=== PATIENT | male | born 1955 | race Caucasian/White ===

== ENCOUNTER 2016-02-17 08:43 | Day surgery (SDC) | payer OTHER ==
[2016-02-12 15:03] VITALS: BMI 29.4
[~2016-02-17 08:43] MED LIST: LIDOCAINE 1% 20 ML VIAL (10MG/ML) FOR IV START INTRADERMA PRN
[2016-02-17 09:08] VITALS: TEMP 97.2
[2016-02-17] MEDS: LACTATED RINGERS 1,000 ML IV SCH ×2 (09:14→09:17)
[2016-02-17] MEDS ORDERED: PROPOFOL 10 MG/ML 20 ML VIAL IV ONE (09:19)
[2016-02-17] MEDS ORDERED: LIDOCAINE 1% INJ 10MG/ML (20 ML MDV) ONE (09:19)
--- NOTE | 2016-02-17 09:36 | P.GSHP ---
History of Present Illness H&P Date: 02/17/16 Chief Complaint: History of colonic polyps This is a 60-year-old male from Dr. Sujatha gonzalez. Patient presents today for colonoscopy. He has a history of colonic polyps. His last colonoscopy was 5 years ago. - Constitutional Constitutional: Reports as per HPI Past Medical History Past Medical History: Prostate Disorder Additional Past Medical History / Comment(s): enlarged prostate History of Any Multi-Drug Resistant Organisms: None Reported Additional Past Surgical History / Comment(s): colonoscopy Past Anesthesia/Blood Transfusion Reactions: No Reported Reaction Additional Past Anesthesia/Blood Transfusion Reaction / Comment(s): never has had general anesthesia or blood transfusion Smoking Status: Never smoker Past Alcohol Use History: None Reported Additional Past Alcohol Use History / Comment(s): chews tobacco-1 can every other day, 45 yrs approx Past Drug Use History: None Reported - Past Family History Mother Family Medical History: Cancer Father Family Medical History: Deep Vein Thrombosis (DVT) Additional Family Medical History / Comment(s): green field filter Medications and Allergies Home Medications Medication Instructions Recorded Confirmed Type Cholecalciferol [Vitamin D3] 2,000 unit PO DAILY 02/12/16 02/17/16 History Cyanocobalamin [Vitamin B-12] 500 mcg PO DAILY 02/12/16 02/17/16 History Finasteride [Proscar] 5 mg PO DAILY 02/12/16 02/17/16 History Terazosin HCl [Hytrin] 10 mg PO HS 02/12/16 02/17/16 History Allergies Allergy/AdvReac Type Severity Reaction Status Date / Time No Known Allergies Allergy Verified 02/17/16 08:54 Surgical - Exam Vital Signs Temp Pulse Resp BP Pulse Ox 97.2 F L 76 18 149/72 97 02/17/16 09:07 02/17/16 09:07 02/17/16 09:07 02/17/16 09:07 02/17/16 09:07 - General well developed, no distress - Eyes PERRL - ENT normal pinna - Neck no masses - Respiratory normal expansion - Cardiovascular Rhythm: regular - Abdomen Abdomen: soft, non tender Assessment and Plan Plan: History of colon polyps. We'll perform colonoscopy.
--- NOTE | 2016-02-17 09:54 | P.OP ---
Date of Procedure: 02/17/16 Preoperative Diagnosis: Colonic polyps Postoperative Diagnosis: Colonic polyp at 40 cm Procedure(s) Performed: Colonoscopy Anesthesia: MAC Surgeon: Romeo Melgar Pathology: other (Colon polyp) Condition: stable Disposition: PACU Description of Procedure: The patient's placed on the endoscopy table in the lateral position. He received IV sedation. Digital rectal exam was performed which revealed no abnormalities. The prostate was symmetric without nodules. The flexible colonoscope was then placed patient anus passed throughout the entire colon. The ileocecal valve was visualized. The cecum Appeared normal. In the ascending colon there was diverticular changes seen. In the transverse and descending colon there were diverticular changes seen. The scope was then brought back into the sigmoid colon and more diverticula are seen. There is also a peduncular polyp. This removed the snare. The scope was then brought back the rectum this appeared normal. Scope was withdrawn for patient.
[2016-02-17 09:58] VITALS: RESP 16
[2016-02-17 10:24] VITALS: BP 136/73; PULSE 50
== END 2016-02-17 10:41 | disposition home or self-care (01) ==
LOC: ORWHC2ENDO 08:43
PROVIDERS: ATTEND Surgery
DX: Z12.11 Encounter for screening for malignant neoplasm of colon (principal); Z86.010 Personal history of colon polyps; D12.5 Benign neoplasm of sigmoid colon; K57.30 Diverticulosis of large intestine without perforation or abscess without bleeding; N40.0 Benign prostatic hyperplasia without lower urinary tract symptoms; I10 Essential (primary) hypertension; Z79.899 Other long term (current) drug therapy; F17.220 Nicotine dependence, chewing tobacco, uncomplicated
CPT/HCPCS: 88305; 45385; J2001; J2704; 99153

== ENCOUNTER 2018-05-26 06:54 | Day surgery (SDC) | payer BC, OTHER ==
[2018-05-25 08:42] VITALS: BMI 27.7
[~2018-05-26 06:54] MED LIST changes: +LACTATED RINGERS 1,000 ML IV SCH; -LIDOCAINE 1% 20 ML VIAL (10MG/ML) FOR IV START INTRADERMA PRN
[2018-05-26] MEDS ORDERED: LACTATED RINGERS 1,000 ML IV ONE (07:03)
[2018-05-26 07:12] VITALS: RESP 16
[2018-05-26] MEDS ORDERED: GLYCOPYRROLATE 0.2 MG/ML 2 ML VIAL ONE (07:50)
[2018-05-26] MEDS ORDERED: PROPOFOL 10 MG/ML 20 ML VIAL IV ONE (07:50)
[2018-05-26] MEDS ORDERED: LIDOCAINE 1% INJ 10MG/ML (20 ML MDV) ONE (07:50)
--- NOTE | 2018-05-26 08:08 | P.GSHP ---
History of Present Illness H&P Date: 05/26/18 Chief Complaint: History of colon polyps This is a 62-year-old male who presents today for colonoscopy. Patient had previous colonoscopy and was found to have colonic polyps. Past Medical History Past Medical History: Prostate Disorder Additional Past Medical History / Comment(s): enlarged prostate History of Any Multi-Drug Resistant Organisms: None Reported Past Surgical History: Hernia Repair Additional Past Surgical History / Comment(s): colonoscopy Past Anesthesia/Blood Transfusion Reactions: No Reported Reaction Additional Past Anesthesia/Blood Transfusion Reaction / Comment(s): never has had blood transfusion Smoking Status: Never smoker - Past Family History Mother Family Medical History: Cancer Father Family Medical History: Deep Vein Thrombosis (DVT) Additional Family Medical History / Comment(s): green field filter Medications and Allergies Home Medications Medication Instructions Recorded Confirmed Type Cholecalciferol [Vitamin D3] 2,000 unit PO DAILY 02/12/16 05/26/18 History Cyanocobalamin [Vitamin B-12] 500 mcg PO DAILY 02/12/16 05/26/18 History Finasteride [Proscar] 5 mg PO DAILY 02/12/16 05/26/18 History Terazosin HCl [Hytrin] 15 mg PO HS 02/12/16 05/26/18 History Allergies Allergy/AdvReac Type Severity Reaction Status Date / Time No Known Allergies Allergy Verified 05/26/18 07:14 Surgical - Exam Vital Signs Pulse Resp BP Pulse Ox 66 16 138/74 94 L 05/26/18 07:12 05/26/18 07:12 05/26/18 07:12 05/26/18 07:12 - General well developed, well nourished, no distress - Eyes PERRL - ENT normal pinna - Neck no masses - Respiratory normal expansion - Cardiovascular Rhythm: regular - Abdomen Abdomen: soft, non tender Assessment and Plan Assessment: History: Polyps. We'll perform colonoscopy.
--- NOTE | 2018-05-26 08:20 | P.OP ---
Date of Procedure: 05/26/18 Preoperative Diagnosis: History of colon polyps Postoperative Diagnosis: Diverticulosis Procedure(s) Performed: Colonoscopy Anesthesia: MAC Surgeon: Romeo Melgar Pathology: none sent Condition: stable Disposition: PACU Description of Procedure: The patient's placed on the endoscopy table lateral position. He received IV sedation. Digital rectal exam was performed which revealed no abnormalities. The prostate was symmetric without nodules. Flexible colonoscope was then placed patient anus and passed throughout the entire colon. The ileocecal valve was visualized. The cecum, ascending and transverse colon appeared normal. In the descending and sigmoid colon there is mild diverticular changes. Scope was then brought back the rectum and appeared normal. Scope was then brought back through the anus and withdrawn from patient. There were no colonic polyps seen.
[2018-05-26 08:36] VITALS: BP 147/72; PULSE 51
== END 2018-05-26 09:06 | disposition home or self-care (01) ==
LOC: ORWHC2ENDO 06:54
PROVIDERS: ATTEND Surgery
DX: Z12.11 Encounter for screening for malignant neoplasm of colon (principal); K57.30 Diverticulosis of large intestine without perforation or abscess without bleeding; Z86.010 Personal history of colon polyps; N40.0 Benign prostatic hyperplasia without lower urinary tract symptoms; Z79.899 Other long term (current) drug therapy
CPT/HCPCS: J2001; J2704; G0105

== ENCOUNTER → 2020-06-27 | Outpatient (CLI) | payer BC ==
--- NOTE | 2020-06-27 14:46 | US ---
EXAMINATION TYPE: US kidneys/renal and bladder DATE OF EXAM: 06/27/2020 COMPARISON: US 11/16/11 CLINICAL HISTORY: R31.9 Hematuria, unspecified. EXAM MEASUREMENTS: Right Kidney: 11.5 x 5.6 x 4.4 cm Left Kidney: 12.4 x 5.5 x 5.2 cm Post Void Residual Volume: Not calculated. Bladder not distended. Prevoid volume = 32.9 ml Right Kidney: No hydronephrosis or renal calculi seen, 2 small cysts seen lower pole : 1) 1.7 x 1.5 x 1.3 cm 2) 1.1 x 0.9 x 0.7 cm Left Kidney: No hydronephrosis or renal calculi seen. 0.9 x 0.8 x 0.8 cm medial lower pole cyst Bladder: Non distended. Difficult to evaluate Bilateral Jets seen: No Normal Post Void Residual: Not calculated. There is no evidence for hydronephrosis at this point in time. No nephrolithiasis is seen. No willard s are identified. The urinary bladder is anechoic. Bilateral ureteral jets are seen. Incidental findings: Multiple hepatic cysts. Enlarged, heterogeneous prostate = 8.8 x 7.1 x 5.1 cm Upper limit size for bilateral common iliac arteries. No AAA seen. Rt = 1.6 x 1.5 cm Lt = 1.5 x 1.5 cm IMPRESSION: 1. No hydronephrosis or shadowing renal calculi. 2. Bilateral renal cysts. 3. Incidental note of multiple hepatic cysts. 4. Enlarged prostate gland measuring 8.8 cm. Urologic evaluation is recommended. 5. Ectasia of the proximal bilateral common iliac arteries.
== END | disposition home or self-care (01) ==
LOC: RADUSWWP 09:24
PROVIDERS: ATTEND Urology
DX: N28.1 Cyst of kidney, acquired (principal); K76.89 Other specified diseases of liver; N40.0 Benign prostatic hyperplasia without lower urinary tract symptoms
CPT/HCPCS: 76770

== ENCOUNTER 2020-11-15 17:52 | Inpatient (IN) | payer BC ==
[2020-11-15] MEDS ORDERED: IBUPROFEN 600 MG TAB PO STA (23:10)
[2020-11-15] MEDS ORDERED: ACETAMINOPHEN TAB 500 MG TAB PO STA (23:10)
[2020-11-16 00:02] LABS: Basophils % (A) 0 %; Eosinophils % (A) 0 %; HCT 37.7 % (39.0-53.0); Lymphocytes # (A) 0.2 k/uL (1.0-4.8); Lymphocytes % (A) 4 %; MCH 30.2 pg (25.0-35.0); MCHC 34.6 g/dL (31.0-37.0); MCV 87.4 fL (80.0-100.0); Mean Platelet Volume 7.3; Monocytes # (A) 0.1 k/uL (0-1.0); Monocytes % (A) 1 %; Neutrophils # (A) 4.5 k/uL (1.3-7.7); Neutrophils % (A) 94 %; Platelet Count 128 k/uL (150-450); RBC 4.31 m/uL (4.30-5.90); WBC 4.8 k/uL (3.8-10.6)
[2020-11-16] MEDS: SODIUM CHLORIDE 0.9% 500 ML 500 ML IV SCH ×3 (00:12→01:10)
[2020-11-16 00:14] LABS: Albumin 3.7 g/dL (3.5-5.0); Calcium 9.3 mg/dL (8.4-10.2); Potassium 3.5 mmol/L (3.5-5.1); Total Protein 6.3 g/dL (6.3-8.2)
[2020-11-16 00:18] LABS: Appearance,Urine Turbid (Clear); Bacteria,Urine Occasional /hpf; Bilirubin,Urine Negative (Negative); Blood,Urine Large (Negative); Color,Urine Dark Red; Glucose,Urine (UA) Negative (Negative); Ketones,Urine Negative (Negative); Leukocyte Esterase,Urine Large (Negative); Mucus,Urine Few /hpf; Nitrite,Urine Positive (Negative); Partial Thromboplastin Time 22.3 sec (22.0-30.0); Protein,Urine 2+ (Negative); Prothrombin Time 10.6 sec (9.0-12.0); RBC,Urine >182 /hpf (0-5); Urobilinogen,Urine <2.0 mg/dL (<2.0); WBC,Urine >182 /hpf (0-5)
[2020-11-16 00:19] LABS: Specific Gravity,Urine 1.015 (1.001-1.035)
[2020-11-16] MEDS ORDERED: LIDOCAINE URO-JET JELLY 2% 5 ML KIT URETHRAL ONE (01:06)
[2020-11-16] MEDS ORDERED: GENTAMICIN IVPB STA (02:39)
[2020-11-16] MEDS ORDERED: SODIUM CHLORIDE 0.9% IVPB STA (02:39)
[2020-11-16] MEDS ORDERED: cefTRIAXone IN SWFI 1,000 MG/10 ML SYRINGE IVP STA (02:39)
[2020-11-16] MEDS ORDERED: NALOXONE 0.4 MG/ML 1 ML VIAL IV PRN (02:40)
--- NOTE | 2020-11-16 02:42 | ED ---
General Adult HPI - General Chief complaint: Abdominal Pain Stated complaint: not able to urinate Time Seen by Provider: 11/15/20 22:54 Source: patient Mode of arrival: ambulatory Limitations: no limitations - History of Present Illness Initial comments: 65 year-old male patient presents to the emergency department for evaluation of urinary retention. Patient underwent cystoscopy on 11/13/20. States that afternoon he developed hematuria and urinary retention. Went back to the office had wong catheter placed. States they "put in in wrong" so he and his removed it later that night. He was doing okay then started to have blood in the urine again today. Then stopped urinating. He is reporting pain to the lower abdomen. Describes it as pressure. states that while sitting in the waiting room he started to become incoherent and woozy. Has not taken any pain medication today. Denies use of blood thinners. - Related Data Home Medications Medication Instructions Recorded Confirmed Cholecalciferol [Vitamin D3] 2,000 unit PO DAILY 02/12/16 05/26/18 Cyanocobalamin [Vitamin B-12] 500 mcg PO DAILY 02/12/16 05/26/18 Finasteride [Proscar] 5 mg PO DAILY 02/12/16 05/26/18 Terazosin HCl [Hytrin] 15 mg PO HS 02/12/16 05/26/18 Allergies Allergy/AdvReac Type Severity Reaction Status Date / Time No Known Allergies Allergy Verified 11/15/20 19:01 Review of Systems ROS Statement: Those systems with pertinent positive or pertinent negative responses have been documented in the HPI. ROS Other: All systems not noted in ROS Statement are negative. Past Medical History Past Medical History: Prostate Disorder Additional Past Medical History / Comment(s): enlarged prostate History of Any Multi-Drug Resistant Organisms: None Reported Past Surgical History: Hernia Repair Additional Past Surgical History / Comment(s): colonoscopy Past Anesthesia/Blood Transfusion Reactions: No Reported Reaction Additional Past Anesthesia/Blood Transfusion Reaction / Comment(s): never has had blood transfusion Past Psychological History: No Psychological Hx Reported Smoking Status: Never smoker Past Alcohol Use History: None Reported Past Drug Use History: None Reported - Past Family History Mother Family Medical History: Cancer Father Family Medical History: Deep Vein Thrombosis (DVT) Additional Family Medical History / Comment(s): green field filter General Exam Limitations: no limitations General appearance: alert, in no apparent distress, other (This is a well- developed, well-nourished adult male patient in no acute distress. Vital signs upon arrival temperature 98.7F, pulse 95, respirations 20, blood pressure 158/88, pulse ox 96% on room air.) ENT exam: Present: normal exam, normal oropharynx, mucous membranes moist Respiratory exam: Present: normal lung sounds bilaterally. Absent: respiratory distress, wheezes, rales, rhonchi, stridor Cardiovascular Exam: Present: regular rate, normal rhythm, normal heart sounds. Absent: systolic murmur, diastolic murmur, rubs, gallop, clicks GI/Abdominal exam: Present: soft, tenderness (Suprapubic), normal bowel sounds. Absent: distended, guarding, rebound, rigid Neurological exam: Present: alert, oriented X3, CN II-XII intact Psychiatric exam: Present: normal affect, normal mood Skin exam: Present: warm, dry, intact, normal color. Absent: rash Course Vital Signs 11/15/20 11/15/20 11/16/20 18:59 23:09 00:30 Temperature 98.7 F 105 F H Pulse Rate 95 152 H Respiratory 20 22 Rate Blood Pressure 158/88 128/96 O2 Sat by Pulse 96 98 Oximetry 11/16/20 11/16/20 01:15 02:46 Temperature 100.3 F H Pulse Rate 128 H 106 H Respiratory 20 18 Rate Blood Pressure 112/62 103/64 O2 Sat by Pulse 98 96 Oximetry Medical Decision Making - Medical Decision Making 65 year-old male patient presents to the emergency department for evaluation of urinary retention and hematuria. Patient 2 day s/p cystoscopy and wong catheter insertion. Self removed wong wednesday evening. While in waiting room patient spiked fever to 105 degrees Fahrenheit. He was tachycardic in the 150s. Labs reviewed showed normal wbc count. Urinalysis showed nelly hematuria. This was sent for culture. We did insert wong catheter it quickly became obstructed with blood clot. Multiple insertions and irrigations were attempted by nursing staff, myself, and Dr. Martinez. Obstruction was relieved and wong is draining. Patient will be admitted for IV antibiotics for possible UTI or prostatitis. Patient and are agreeable. My attending is Dr. Martinez. - Lab Data Result diagrams: 11/15/20 23:51 11/15/20 23:51 Lab Results 11/15/20 11/15/20 11/15/20 Range/Units 23:45 23:51 23:51 WBC 4.8 (3.8-10.6) k/uL RBC 4.31 (4.30-5.90) m/uL Hgb 13.0 (13.0-17.5) gm/dL Hct 37.7 L (39.0-53.0) % MCV 87.4 (80.0-100.0) fL MCH 30.2 (25.0-35.0) pg MCHC 34.6 (31.0-37.0) g/dL RDW 13.0 (11.5-15.5) % Plt Count 128 L (150-450) k/uL MPV 7.3 Neutrophils % 94 % Lymphocytes % 4 % Monocytes % 1 % Eosinophils % 0 % Basophils % 0 % Neutrophils # 4.5 (1.3-7.7) k/uL Lymphocytes # 0.2 L (1.0-4.8) k/uL Monocytes # 0.1 (0-1.0) k/uL Eosinophils # 0.0 (0-0.7) k/uL Basophils # 0.0 (0-0.2) k/uL PT 10.6 (9.0-12.0) sec INR 1.0 (<1.2) APTT 22.3 (22.0-30.0) sec Sodium (137-145) mmol/L Potassium (3.5-5.1) mmol/L Chloride (98-107) mmol/L Carbon Dioxide (22-30) mmol/L Anion Gap mmol/L BUN (9-20) mg/dL Creatinine (0.66-1.25) mg/dL Est GFR (CKD-EPI)AfAm (>60 ml/min/1.73 sqM) Est GFR (CKD-EPI)NonAf (>60 ml/min/1.73 sqM) Glucose (74-99) mg/dL Plasma Lactic Acid Bernard[place] (0.7-2.0) mmol/L Calcium (8.4-10.2) mg/dL Total Bilirubin (0.2-1.3) mg/dL AST (17-59) U/L ALT (4-49) U/L Alkaline Phosphatase (38-126) U/L Total Protein (6.3-8.2) g/dL Albumin (3.5-5.0) g/dL Urine Color Urine Appearance (Clear) Urine pH (5.0-8.0) Ur Specific [place] (1.001-1.035) Urine Protein (Negative) Urine Glucose (UA) (Negative) Urine Ketones (Negative) Urine Blood (Negative) Urine Nitrite (Negative) Urine Bilirubin (Negative) Urine Urobilinogen (<2.0) mg/dL Ur Leukocyte Esterase (Negative) Urine RBC (0-5) /hpf Urine WBC (0-5) /hpf Urine Bacteria (None) /hpf Urine Mucus (None) /hpf Coronavirus (PCR) Not Detected (Not Detectd) 11/15/20 11/15/20 11/15/20 Range/Units 23:51 23:51 23:51 WBC (3.8-10.6) k/uL RBC (4.30-5.90) m/uL Hgb (13.0-17.5) gm/dL Hct (39.0-53.0) % MCV (80.0-100.0) fL MCH (25.0-35.0) pg MCHC (31.0-37.0) g/dL RDW (11.5-15.5) % Plt Count (150-450) k/uL MPV Neutrophils % % Lymphocytes % % Monocytes % % Eosinophils % % Basophils % % Neutrophils # (1.3-7.7) k/uL Lymphocytes # (1.0-4.8) k/uL Monocytes # (0-1.0) k/uL Eosinophils # (0-0.7) k/uL Basophils # (0-0.2) k/uL PT (9.0-12.0) sec INR (<1.2) APTT (22.0-30.0) sec Sodium 133 L (137-145) mmol/L Potassium 3.5 (3.5-5.1) mmol/L Chloride 101 (98-107) mmol/L Carbon Dioxide 24 (22-30) mmol/L Anion Gap 8 mmol/L BUN 27 H (9-20) mg/dL Creatinine 1.13 (0.66-1.25) mg/dL Est GFR (CKD-EPI)AfAm 80 (>60 ml/min/1.73 sqM) Est GFR (CKD-EPI)NonAf 69 (>60 ml/min/1.73 sqM) Glucose 119 H (74-99) mg/dL Plasma Lactic Acid Bernard[place] 1.4 (0.7-2.0) mmol/L Calcium 9.3 (8.4-10.2) mg/dL Total Bilirubin 1.0 (0.2-1.3) mg/dL AST 28 (17-59) U/L ALT 18 (4-49) U/L Alkaline Phosphatase 72 (38-126) U/L Total Protein 6.3 (6.3-8.2) g/dL Albumin 3.7 (3.5-5.0) g/dL Urine Color Dark Red Urine Appearance Turbid (Clear) Urine pH 6.0 (5.0-8.0) Ur Specific [place] 1.015 (1.001-1.035) Urine Protein 2+ H (Negative) Urine Glucose (UA) Negative (Negative) Urine Ketones Negative (Negative) Urine Blood Large H (Negative) Urine Nitrite Positive (Negative) Urine Bilirubin Negative (Negative) Urine Urobilinogen <2.0 (<2.0) mg/dL Ur Leukocyte Esterase Large H (Negative) Urine RBC >182 H (0-5) /hpf Urine WBC >182 H (0-5) /hpf Urine Bacteria Occasional H (None) /hpf Urine Mucus Few H (None) /hpf Coronavirus (PCR) (Not Detectd) Disposition Clinical Impression: Urine retention, Hematuria, Prostatitis, UTI (urinary tract infection) Disposition: ADMITTED IP TO THIS [facility] Condition: Serious Referrals: Sujatha Burnette DO [Primary Care Provider] - 1-2 days Decision to Admit Reason: Admit from EC Decision Date: 11/16/20 Decision Time: 02:42
[2020-11-16] MEDS: SODIUM CHLORIDE 0.9% 1,000 ML IV SCH ×2 (04:23→19:17)
[2020-11-16] MEDS: ACETAMINOPHEN TAB 325 MG TAB PO PRN ×3 (06:41→22:35)
--- NOTE | 2020-11-16 07:42 | P.GSCN ---
History of Present Illness Consult date: 11/16/20 History of present illness: 65-year-old male, seen in our office late last week by voiding dysfunction. He had post cystoscopy bleeding that required a catheter for clot urinary retention. The catheter apparently plugged and he removed it under my guidance because he was urinating around the catheter. He apparently urinated fine until last night when he came in again in clot urinary retention and also has a urinary tract infection. Developed a high fever last night. His urine is infected microscopically and is a gross hematuria. The emergency room staff is irrigated catheter and is now draining dark old blood consistent with dissolving clot. He is admitted the hospital with IV fluids and IV antibiotics cultures have been obtained. They the plan was to place him on both Flomax and finasteride which will be instituted. This point time it does not appear as if he needs to have cystoscopy and irrigation. Review of Systems All systems: negative - Constitutional Denies fever, Denies weight loss - EENT Eyes: denies blurred vision Ears, nose, mouth and throat: Denies dysphagia - Cardiovascular Denies chest pain, Denies shortness of breath - Respiratory Denies cough, Denies 7 - Gastrointestinal Reports as per HPI - Genitourinary Denies dysuria, Denies hematuria - Integumentary Denies rash, Denies unusual bruising - Neurological Denies headaches, Denies syncope - Hematologic/Lymphatic Denies easy bleeding, Denies easy bruising Past Medical History Past Medical History: Prostate Disorder Additional Past Medical History / Comment(s): enlarged prostate History of Any Multi-Drug Resistant Organisms: None Reported Past Surgical History: Hernia Repair Additional Past Surgical History / Comment(s): colonoscopy Past Anesthesia/Blood Transfusion Reactions: No Reported Reaction Additional Past Anesthesia/Blood Transfusion Reaction / Comm: never has had blood transfusion Past Psychological History: No Psychological Hx Reported Smoking Status: Never smoker Past Alcohol Use History: None Reported Past Drug Use History: None Reported - Past Family History Mother Family Medical History: Cancer Father Family Medical History: Deep Vein Thrombosis (DVT) Additional Family Medical History / Comment(s): green field filter Medications and Allergies Home Medications Medication Instructions Recorded Confirmed Type Cholecalciferol [Vitamin D3] 2,000 unit PO DAILY 02/12/16 05/26/18 History Cyanocobalamin [Vitamin B-12] 500 mcg PO DAILY 02/12/16 05/26/18 History Finasteride [Proscar] 5 mg PO DAILY 02/12/16 05/26/18 History Terazosin HCl [Hytrin] 15 mg PO HS 02/12/16 05/26/18 History Allergies Allergy/AdvReac Type Severity Reaction Status Date / Time No Known Allergies Allergy Verified 11/15/20 19:01 Surgical - Exam Vital Signs Temp Pulse Resp BP Pulse Ox 98.7 F 95 20 158/88 96 11/15/20 18:59 11/15/20 18:59 11/15/20 18:59 11/15/20 18:59 11/15/20 18:59 - General Mild distress well developed, well nourished - Eyes PERRL - ENT no hearing loss - Neck trachea midline - Respiratory normal expansion, normal respiratory effort - Cardiovascular Rhythm: regular - Abdomen Mild tenderness Abdomen: soft - Genitourinary Indwelling catheter with old blood draining freely normal penis with no external lesions, testicles present - Neurologic normal sensation - Musculoskeletal normal posture - Psychiatric oriented to time, oriented to person, oriented to place, speech is normal, memory intact Results - Labs 11/15/20 23:51 11/15/20 23:51 Abnormal Lab Results - Last 24 Hours (Table) 11/15/20 11/15/20 11/15/20 Range/Units 23:51 23:51 23:51 Hct 37.7 L (39.0-53.0) % Plt Count 128 L (150-450) k/uL Lymphocytes # 0.2 L (1.0-4.8) k/uL Sodium 133 L (137-145) mmol/L BUN 27 H (9-20) mg/dL Glucose 119 H (74-99) mg/dL Urine Protein 2+ H (Negative) Urine Blood Large H (Negative) Ur Leukocyte Esterase Large H (Negative) Urine RBC >182 H (0-5) /hpf Urine WBC >182 H (0-5) /hpf Urine Bacteria Occasional H (None) /hpf Urine Mucus Few H (None) /hpf Diabetes panel 11/15/20 Range/Units 23:51 Sodium 133 L (137-145) mmol/L Potassium 3.5 (3.5-5.1) mmol/L Chloride 101 (98-107) mmol/L Carbon Dioxide 24 (22-30) mmol/L BUN 27 H (9-20) mg/dL Creatinine 1.13 (0.66-1.25) mg/dL Glucose 119 H (74-99) mg/dL Calcium 9.3 (8.4-10.2) mg/dL AST 28 (17-59) U/L ALT 18 (4-49) U/L Alkaline Phosphatase 72 (38-126) U/L Total Protein 6.3 (6.3-8.2) g/dL Albumin 3.7 (3.5-5.0) g/dL Calcium panel 11/15/20 Range/Units 23:51 Calcium 9.3 (8.4-10.2) mg/dL Albumin 3.7 (3.5-5.0) g/dL Pituitary panel 11/15/20 Range/Units 23:51 Sodium 133 L (137-145) mmol/L Potassium 3.5 (3.5-5.1) mmol/L Chloride 101 (98-107) mmol/L Carbon Dioxide 24 (22-30) mmol/L BUN 27 H (9-20) mg/dL Creatinine 1.13 (0.66-1.25) mg/dL Glucose 119 H (74-99) mg/dL Calcium 9.3 (8.4-10.2) mg/dL Adrenal panel 11/15/20 Range/Units 23:51 Sodium 133 L (137-145) mmol/L Potassium 3.5 (3.5-5.1) mmol/L Chloride 101 (98-107) mmol/L Carbon Dioxide 24 (22-30) mmol/L BUN 27 H (9-20) mg/dL Creatinine 1.13 (0.66-1.25) mg/dL Glucose 119 H (74-99) mg/dL Calcium 9.3 (8.4-10.2) mg/dL Total Bilirubin 1.0 (0.2-1.3) mg/dL AST 28 (17-59) U/L ALT 18 (4-49) U/L Alkaline Phosphatase 72 (38-126) U/L Total Protein 6.3 (6.3-8.2) g/dL Albumin 3.7 (3.5-5.0) g/dL Assessment and Plan Assessment: Impression: The bpH with obstruction. Clot urinary retention. Acute pr ostatitis, urinary tract infection with sepsis. Recommendations: IV fluids, IV antibiotics and irrigation is indicated. Leave the catheter in until we get the infection under control and the urine clears.
[2020-11-16] MEDS ORDERED: GENTAMICIN PER PHARMACY MISCELLANE PRN (10:37)
[2020-11-16] MEDS: FINASTERIDE 5 MG TAB PO SCH (11:07)
[2020-11-16] MEDS ORDERED: ALPRAZolam 0.25 MG TAB PO PRN (15:15)
[2020-11-16] MEDS: HYDROmorphone 0.5 MG/0.5 ML SYRINGE IVP PRN (16:29)
--- NOTE | 2020-11-16 17:31 | HP ---
HISTORY AND PHYSICAL I am covering for Dr. Burnette. DATE OF SERVICE: 11/16/2020 CHIEF COMPLAINT: Abdominal pain and inability to urinate. HISTORY OF PRESENT ILLNESS: This 65-year-old gentleman with a past medical history of multiple medical problems including history of prostate disorder, enlarged prostate, hernia repair, being followed by Dr. Burnette in the outpatient setting, was admitted with urinary retention. The patient underwent a cystoscopy recently. The patient had some hematuria and urinary retention also. The patient was found to have some evidence of UTI also. The patient was evaluated by Urology. Dr. Macario saw the patient this morning. The patient still has some suprapubic tenderness. The patient also had high fever. IV fluids and IV antibiotics initiated at this time. Acute prostatitis also suspected. There is no history of fever, rigors, chills at this time. PAST MEDICAL HISTORY: History of prostate disorder, enlarged prostate, hernia, colonoscopy, cystoscopy. MEDICATIONS: Home medications are: Losartan, Hytrin, Proscar, vitamin B12, vitamin D3. ALLERGIES: None. FAMILY HISTORY: History of cancer and [place] filter. SOCIAL HISTORY: No history of smoking. No history of alcohol intake. REVIEW OF SYSTEMS: ENT: No diminished hearing. No diminished vision. CARDIOVASCULAR system as mentioned earlier. RESPIRATORY: As mentioned earlier. GI: As mentioned earlier. : As mentioned earlier. NERVOUS SYSTEM: No numbness or weakness. ALLERGY/IMMUNOLOGY: No asthma or hayfever. MUSCULOSKELETAL: As mentioned earlier. HEMATOLOGY/ONCOLOGY: No history of anemia. ENDOCRINE: No history of diabetes or hypothyroidism. CONSTITUTIONAL: As mentioned earlier. DERMATOLOGY: Negative. RHEUMATOLOGY: Negative. PSYCHIATRIC: As mentioned earlier. PHYSICAL EXAMINATION: GENERAL: The patient is alert and oriented times three. VITAL SIGNS: Pulse 91, blood pressure 130/62, respirations 18. Temperature 100.5, pulse ox 99 percent on room air. HEENT: Conjunctivae normal. NECK: No JVD. CARDIOVASCULAR: S1, S2. RESPIRATION: Breath sounds diminished in the bases. No rhonchi. ABDOMEN: Soft, mild diffuse tenderness in the suprapubic area present. No guarding. No rebound. No rigidity. No mass palpable. LEGS are no edema. No swelling. NERVOUS SYSTEM: Higher functions as mentioned. Moves all four limbs. No focal deficits. LYMPHATICS: No lymph nodes palpable in the neck, axillae or groin. SKIN: No ulcer, no rash. JOINTS: No active deforming arthropathy. Jimenez catheter in-situ draining some bloody urine. LABS: At this time shows: WBC 4.8, hemoglobin 13, sodium 130. Potassium 3.5. ASSESSMENT: 1. Acute urinary tract infection with sepsis. 2. Possible acute prostatitis. 3. Hematuria status post Jimenez catheter. 4. History of recent cystoscopy. 5. Thrombocytopenia mild. 6. Mild hyponatremia. 7. Elevated random glucose. 8. History of benign prostatic hypertrophy. 9. History of hernia surgery. 10.Colonoscopy. 11.History of nicotine dependency, chews tobacco. 12.FULL CODE. RECOMMENDATIONS AND DISCUSSION: This 65-year-old gentleman who presented with multiple complex medical issues, we will monitor the patient closely, continue the current medications, management and symptomatic treatment. I recommend aggressive IV fluids as well as intravenous antibiotics. Other than that, closely follow with Urology. Prognosis guarded because of multiple complex medical issues. We will obtain the cultures also. Discussed with the patient who understands and agrees. Further recommendations to follow. A copy of dictation being forwarded to Dr. Burnette who is the primary physician. MMODL / IJN: [id number] /
[2020-11-16] MEDS: NICOTINE 14MG/24HR PATCH TRANSDERM SCH (22:03)
[2020-11-16] MEDS: DOXAZOSIN 4 MG TAB PO SCH (22:34)
[2020-11-16] MEDS: TAMSULOSIN 0.4 MG CAP.ER.24H PO SCH (22:35)
[2020-11-17] MEDS: HYDROmorphone 0.5 MG/0.5 ML SYRINGE IVP PRN ×4 (02:44→21:57)
[2020-11-17] MEDS: SODIUM CHLORIDE 0.9% 1,000 ML IV SCH ×2 (04:40→19:58)
[2020-11-17] MEDS: ACETAMINOPHEN TAB 325 MG TAB PO PRN ×3 (07:33→19:57)
[2020-11-17] MEDS: PANTOPRAZOLE 40 MG TABLET PO SCH (07:38)
[2020-11-17] MEDS: CHOLECALCIFEROL 25 MCG (1000 IU) TABLET PO SCH (07:39)
[2020-11-17] MEDS: CYANOCOBALAMIN 500 MCG TAB PO SCH (07:39)
[2020-11-17] MEDS: LOSARTAN 50 MG TAB PO SCH (07:39)
[2020-11-17] MEDS: DOXAZOSIN 4 MG TAB PO SCH ×2 (07:39→19:57)
[2020-11-17] MEDS: FINASTERIDE 5 MG TAB PO SCH (07:39)
[2020-11-17] MEDS: NICOTINE 14MG/24HR PATCH TRANSDERM SCH (07:39)
[2020-11-17 08:17] LABS: African American GFR (CKD) 82 (>60 ml/min/1.73 sqM); Anion Gap 5 mmol/L; Blood Urea Nitrogen 25 mg/dL (9-20); Calcium 8.3 mg/dL (8.4-10.2); Carbon Dioxide 24 mmol/L (22-30); Chloride 100 mmol/L (98-107); Glucose 104 mg/dL (74-99); Non-African American GFR(CKD) 71 (>60 ml/min/1.73 sqM); Potassium 4.2 mmol/L (3.5-5.1); Sodium 129 mmol/L (137-145)
[2020-11-17 08:49] LABS: Basophils % (A) 0 %; Eosinophils % (A) 0 %; HCT 33.4 % (39.0-53.0); HGB 12.2 gm/dL (13.0-17.5); Lymphocytes # (A) 0.2 k/uL (1.0-4.8); Lymphocytes % (A) 4 %; MCH 31.1 pg (25.0-35.0); MCHC 36.4 g/dL (31.0-37.0); MCV 85.5 fL (80.0-100.0); Monocytes # (A) 0.2 k/uL (0-1.0); Monocytes % (A) 3 %; Neutrophils % (A) 91 %; RBC 3.91 m/uL (4.30-5.90); RDW 13.5 % (11.5-15.5); WBC 5.5 k/uL (3.8-10.6)
[2020-11-17 09:17] LABS: Platelet Count 95 k/uL (150-450)
--- NOTE | 2020-11-17 09:55 | P.PN ---
Subjective Progress Note Date: 11/17/20 The patient is in the hospital with clot urinary retention, urinary tract infection with sepsis due to the catheter and the intermittent retention. His hematuria is resolving. His T-max yesterday was 102.7. He is growing staph aureus in the urine and blood. The gentamicin and ceftriaxone should be mignon ropriate. I recommend leaving the catheter in until the fever resolved. We'll continue to follow Objective - Vital Signs Vital signs: Vital Signs Temp 98.0 F 11/17/20 08:30 Pulse 87 11/17/20 07:27 Resp 18 11/17/20 04:40 BP 140/68 11/17/20 07:27 Pulse Ox 93 L 11/17/20 07:27 Intake & Output 11/16/20 11/17/20 11/17/20 18:59 06:59 18:59 Intake Total 550 Output Total 900 1000 Balance -900 -450 Intake: Intake, IV Titration 550 Amount Sodium Chloride 0.9% 1, 500 000 ml @ 75 mls/hr IV . [id number] [facility] Rx#:[id number] cefTRIAXone 2 gm In 50 Sodium Chloride 0.9% 50 ml @ 100 mls/hr IVPB Q24H [facility] Rx#:[id number] Output: Urine 900 1000 Other: Voiding Method Indwelling Catheter - Labs CBC & Chem 7: 11/17/20 07:39 11/17/20 07:39 Labs: Abnormal Lab Results - Last 24 Hours (Table) 11/17/20 11/17/20 Range/Units 07:39 07:39 RBC 3.91 L (4.30-5.90) m/uL Hgb 12.2 L (13.0-17.5) gm/dL Hct 33.4 L (39.0-53.0) % Plt Count 95 L (150-450) k/uL Lymphocytes # 0.2 L (1.0-4.8) k/uL Sodium 129 L (137-145) mmol/L BUN 25 H (9-20) mg/dL Glucose 104 H (74-99) mg/dL Calcium 8.3 L (8.4-10.2) mg/dL Microbiology - Last 24 Hours (Table) 11/15/20 23:51 Urine Culture - Preliminary Urine,Voided Presumptive Staph aureus 11/15/20 23:51 Blood Culture Gram Stain - Preliminary Blood 11/15/20 23:51 Blood Culture - Final Blood 11/15/20 23:51 Blood Culture - Final Blood
[2020-11-17] MEDS ORDERED: VANCOMYCIN IV PER PHARMACY 1 EACH MISC MISCELLANE PRN (13:04)
--- NOTE | 2020-11-17 13:15 | P.PN ---
Subjective Progress Note Date: 11/17/20 INTERVAL HISTORY: 65-year-old male with past medical history of prostate disorder, BPH, hernia repair, who follows with Dr. Martinez the outpatient setting. Patient was admitted with urinary retention underwent cystoscopy recently. Patient has had some hematuria and urinary retention. Patient was found to have evidence of UTI was evaluated by urology. Patient has some suprapubic tenderness also had a high fever receiving IV fluids and IV antibiotics acute prostate mellitus is also expected 11/17/2020 Patient seen on follow-up resting in bed, he has cool washcloth on his head appears weak and fatigued. Jimenez catheter noted to have dark hematuria present. Having fever 102.7 this morning, blood and urine cultures are showing presumptive staph aureus. He has been receiving antimicrobial therapy with Rocephin and gentamicin, urology is following. Recheck a blood culture. He is still having hematuria monitor hemoglobin, 12.2 today, WBC 5.5. REVIEW OF SYSTEMS: CONSTITUTIONAL: Weakness, fever HEENT: Negative CARDIOVASCULAR:Negative RESPIRATORY: Negative GI: Negative : Hematuria, Jimenez catheter NEUROLOGICAL: Negative MUSCULOSKELETAL: Negative INTEGUMENTARY: Negative. PHYSICAL EXAM: HEENT: Head is atraumatic, normocephalic. Pupils equal, round. Sclerae is anicteric. NECK: Supple. No JVD. No lymphadenopathy. No thyromegaly. LUNGS: Clear to auscultation. No wheezes or rhonchi. HEART: Regular rate and rhythm. No murmur. ABDOMEN: Soft. Bowel sounds are present. No masses. Jimenez catheter with hematuria EXTREMITIES: No pedal edema. NEUROLOGICAL: Patient is awake, alert and oriented x3. Cranial nerves 2 through 12 are grossly intact. LABORATORY INVESTIGATIONS: []. ASSESSMENT AND PLAN: Acute UTI with sepsis, urine culture growing presumptive staph Bacteremia, blood culture growing presumptive staph Possible acute prostate-itis Hematuria, status post Jimenez catheter History of recent cystoscopy Mild trouble cytopenia Mild hyponatremia Elevated random glucose History of BPH History of hernia repair Colonoscopy Patient is continued on antimicrobial therapy with Rocephin and gentamicin urine and blood are growing presumptive staph, urology is following. Still having hematuria from Jimenez catheter, monitor hemoglobin. Consult infectious disease. Recheck blood culture. Continue gentle IV hydration saline at 75. DVT prophylaxis subcutaneous heparin. Objective - Vital Signs Vital signs: Vital Signs Temp 98.5 F 11/17/20 12:04 Pulse 74 11/17/20 12:04 Resp 17 11/17/20 12:04 BP 126/64 11/17/20 12:04 Pulse Ox 96 11/17/20 12:04 Intake & Output 11/16/20 11/17/20 11/17/20 18:59 06:59 18:59 Intake Total 550 Output Total 900 1000 Balance -900 -450 Intake: Intake, IV Titration 550 Amount Sodium Chloride 0.9% 1, 500 000 ml @ 75 mls/hr IV . [id number] [facility] Rx#:[id number] cefTRIAXone 2 gm In 50 Sodium Chloride 0.9% 50 ml @ 100 mls/hr IVPB Q24H [facility] Rx#:[id number] Output: Urine 900 1000 Other: Voiding Method Indwelling Catheter Indwelling Catheter - Labs CBC & Chem 7: 11/17/20 07:39 11/17/20 07:39 Labs: Abnormal Lab Results - Last 24 Hours (Table) 11/17/20 11/17/20 Range/Units 07:39 07:39 RBC 3.91 L (4.30-5.90) m/uL Hgb 12.2 L (13.0-17.5) gm/dL Hct 33.4 L (39.0-53.0) % Plt Count 95 L (150-450) k/uL Lymphocytes # 0.2 L (1.0-4.8) k/uL Sodium 129 L (137-145) mmol/L BUN 25 H (9-20) mg/dL Glucose 104 H (74-99) mg/dL Calcium 8.3 L (8.4-10.2) mg/dL Microbiology - Last 24 Hours (Table) 11/15/20 23:51 Blood Culture Gram Stain - Preliminary Blood 11/15/20 23:51 Blood Culture Gram Stain - Preliminary Blood Blood Culture - Preliminary Staphylococcus aureus 11/15/20 23:51 Urine Culture - Preliminary Urine,Voided Presumptive Staph aureus 11/15/20 23:51 Blood Culture - Final Blood 11/15/20 23:51 Blood Culture - Final Blood
[2020-11-17] MEDS ORDERED: SODIUM CHLORIDE 0.9% IVPB SCH (17:00)
[2020-11-17] MEDS ORDERED: GENTAMICIN IVPB SCH (17:00)
[2020-11-17] MEDS: TAMSULOSIN 0.4 MG CAP.ER.24H PO SCH (17:29)
[2020-11-18] MEDS: ACETAMINOPHEN TAB 325 MG TAB PO PRN (02:55)
[2020-11-18] MEDS: HYDROmorphone 0.5 MG/0.5 ML SYRINGE IVP PRN (05:38)
[2020-11-18] MEDS ORDERED: VANCOMYCIN IV PER PHARMACY 1 EACH MISC MISCELLANE PRN (07:05)
--- NOTE | 2020-11-18 07:09 | P.CONS ---
History of Present Illness - Reason for Consult Consult date: 11/17/20 Fever Requesting physician: Ralph Titus - Chief Complaint Unable to urinate /bleeding x 2 days - History of Present Illness History of present illness : Patient is 65-year-old male with a past medical history significant for urinary outflow obstruction in this patient who did have a recent stress colonoscopy done in the outpatient setting by his urologist patient did have catheter insertion for bleeding apparently the catheter got blocked and was removed patient presenting to the ER on the morning for evaluation of urinary retention unable to urinate did have burning of urine some suprapubic discomfort more of a dull aching pain 5-6 over 10 had radiation some nausea but no vomiting with the symptom the patient was evaluated by the ER physician on arrival to the ER patient did have a fever of 105 degree form height patient did have a normal white count kidney function has been normal urine has been positive with large leukocyte esterase more than 22 WBC pollack PCR has been negative patient has been started on Rocephin and gentamicin infectious disease was consulted because of his fevers, patient did have a blood and urine cultures coming back positive with staph aureus Review of system: CONSTITUTIONAL: Positive for weakness along with the fever. EYES: No complaint. ENT: No complaint. RESPIRATORY: No complaint. CARDIOVASCULAR: No complaint. GENITOURINARY as per history of present illness. GASTROINTESTINAL: No complaint. MUSCULOSKELETAL: No complaint. INTEGUMENTARY: No complaint. PSYCHOLOGIC: No complaint. ENDOCRINE: No complaint. NEUROLOGIC: No complaint. Past medical history : Reviewed, documented below Past surgical history : Reviewed, documented below Social history: Reviewed, documented below Medications: Reviewed, as documented below EXAMINATION: Vital sigans= Reviewed and documented below GENERAL DESCRIPTION: Elderly male lying in bed, no distress. No tachypnea or accessory muscle of respiration use. HEENT: Shows Pallor , no scleral icterus. Oral mucous membrane is dry. NECK: Trachea central, no thyromegaly. LUNGS: Unlabored breathing. Decreased breath sound at the base. No wheeze or crackle. HEART: S1, S2, regular rate and rhythm. ABDOMEN: Soft, no tenderness , guarding or rigidity EXTREMITIES: No edema of feet. SKIN: No rash, no masses palpable. NEUROLOGICAL: The patient is awake, alert, oriented x3, mood and affect normal. LABS AND RADIOLOGY: Reviewed results see below Assessment : Patient presented to hospital with sepsis in this patient who did have a fever tachycardia in this patient predominantly urinary symptoms with retention and burning suprapubic pain secondary to the complicated urinary tract infection in this patient with recent cystoscopy now with the blood and urine showing staph aureus with a possible concern for MRSA Plan: 1-discontinue gentamicin 2-vancomycin pharmacy to dose with a target trough of 15 while watching kidney function and Vanco trough closely. 3-gentle IV fluid We will follow on clinical condition and cultures to further adjust medication if needed Thank you for this consultation we will follow the patient along with you Past Medical History Past Medical History: Prostate Disorder Additional Past Medical History / Comment(s): enlarged prostate History of Any Multi-Drug Resistant Organisms: None Reported Past Surgical History: Hernia Repair Additional Past Surgical History / Comment(s): colonoscopy Past Anesthesia/Blood Transfusion Reactions: No Reported Reaction Additional Past Anesthesia/Blood Transfusion Reaction / Comm: never has had blood transfusion Past Psychological History: No Psychological Hx Reported Smoking Status: Never smoker Past Alcohol Use History: None Reported Past Drug Use History: None Reported - Past Family History Mother Family Medical History: Cancer Father Family Medical History: Deep Vein Thrombosis (DVT) Additional Family Medical History / Comment(s): green [place] filter Medications and Allergies Home Medications Medication Instructions Recorded Confirmed Type Cholecalciferol [Vitamin D3] 2,000 unit PO DAILY 02/12/16 11/16/20 History Cyanocobalamin [Vitamin B-12] 500 mcg PO DAILY 02/12/16 11/16/20 History Finasteride [Proscar] 5 mg PO DAILY 02/12/16 11/16/20 History Terazosin HCl [Hytrin] 10 mg PO BID 02/12/16 11/16/20 History Losartan Potassium 50 mg PO DAILY 11/16/20 11/16/20 History Allergies Allergy/AdvReac Type Severity Reaction Status Date / Time No Known Allergies Allergy Verified 11/16/20 08:29 Physical Exam Vitals: Vital Signs Temp Pulse Pulse Resp BP BP Pulse Ox 11/17/20 12:04 98.5 F 74 17 126/64 96 11/17/20 08:30 98.0 F 11/17/20 07:27 102.7 F H 87 140/68 93 L 11/17/20 04:40 99.3 F 89 18 137/61 95 11/17/20 03:00 18 11/17/20 02:30 100.5 F H 82 18 123/51 94 L 11/16/20 22:04 101.5 F H 86 18 124/75 95 11/16/20 18:00 97 18 149/78 99 Intake and Output 11/17/20 11/17/20 11/17/20 06:59 14:59 22:59 Intake Total 550 Output Total 1000 800 Balance -450 -800 Intake: Intake, IV Titration 550 Amount Sodium Chloride 0.9% 1, 500 000 ml @ 75 mls/hr IV . [id number] [facility] Rx#:[id number] cefTRIAXone 2 gm In 50 Sodium Chloride 0.9% 50 ml @ 100 mls/hr IVPB Q24H [facility] Rx#:[id number] Output: Urine 1000 800 Uretheral (Jimenez) 800 Other: Voiding Method Indwelling Catheter Indwelling Catheter Results CBC & Chem 7: 11/17/20 07:39 11/17/20 07:39 Labs: Abnormal Lab Results - Last 24 Hours (Table) 11/17/20 11/17/20 Range/Units 07:39 07:39 RBC 3.91 L (4.30-5.90) m/uL Hgb 12.2 L (13.0-17.5) gm/dL Hct 33.4 L (39.0-53.0) % Plt Count 95 L (150-450) k/uL Lymphocytes # 0.2 L (1.0-4.8) k/uL Sodium 129 L (137-145) mmol/L BUN 25 H (9-20) mg/dL Glucose 104 H (74-99) mg/dL Calcium 8.3 L (8.4-10.2) mg/dL Microbiology - Last 24 Hours (Table) 11/15/20 23:51 Blood Culture Gram Stain - Preliminary Blood 11/15/20 23:51 Blood Culture Gram Stain - Preliminary Blood Blood Culture - Preliminary Staphylococcus aureus 11/15/20 23:51 Urine Culture - Preliminary Urine,Voided Presumptive Staph aureus 11/15/20 23:51 Blood Culture - Final Blood 11/15/20 23:51 Blood Culture - Final Blood
[2020-11-18] MEDS ORDERED: VANCOMYCIN 1,500 MG in SODIUM CHLORIDE 0.9% 250 ML IVPB STA (07:14)
[2020-11-18] MEDS: DOXAZOSIN 4 MG TAB PO SCH ×2 (07:35→20:10)
[2020-11-18] MEDS: CYANOCOBALAMIN 500 MCG TAB PO SCH (07:35)
[2020-11-18] MEDS: LOSARTAN 50 MG TAB PO SCH (07:35)
[2020-11-18] MEDS: PANTOPRAZOLE 40 MG TABLET PO SCH (07:35)
[2020-11-18] MEDS: FINASTERIDE 5 MG TAB PO SCH (07:35)
[2020-11-18] MEDS: CHOLECALCIFEROL 25 MCG (1000 IU) TABLET PO SCH (07:35)
[2020-11-18] MEDS: NICOTINE 14MG/24HR PATCH TRANSDERM SCH (07:36)
--- NOTE | 2020-11-18 12:21 | P.PN ---
Subjective Progress Note Date: 11/18/20 Urine clear this morning, was febrile overnight. Denies any dysuria. Urine culture and blood culture growing pansensitive staph aureus Objective - Vital Signs Vital signs: Vital Signs Temp 99.3 F 11/18/20 04:11 Pulse 76 11/18/20 04:11 Resp 16 11/18/20 04:11 BP 150/76 11/18/20 04:11 Pulse Ox 94 L 11/18/20 04:11 Intake & Output 11/17/20 11/18/20 11/18/20 18:59 06:59 18:59 Intake Total 900 1550 Output Total 2800 1800 950 Balance -1900 -250 -950 Intake: Intake, IV Titration 900 950 Amount Sodium Chloride 0.9% 1, 900 900 000 ml @ 75 mls/hr IV . [id number] [facility] Rx#:[id number] cefTRIAXone 2 gm In 50 Sodium Chloride 0.9% 50 ml @ 100 mls/hr IVPB Q24H [facility] Rx#:[id number] Oral 600 Output: Urine 2800 1800 950 Uretheral (Jimenez) 2800 1000 950 Other: Voiding Method Indwelling Catheter Indwelling Catheter Indwelling Catheter - Constitutional General appearance: Present: no acute distress - Genitourinary Genitourinary Comment(s): Jimenez in place, urine is clear - Labs CBC & Chem 7: 11/17/20 07:39 11/17/20 07:39 Labs: Microbiology - Last 24 Hours (Table) 11/15/20 23:51 Urine Culture - Final Urine,Voided Staphylococcus aureus 11/15/20 23:51 Blood Culture Gram Stain - Preliminary Blood Blood Culture - Preliminary Presumptive Staph aureus 11/15/20 23:51 Blood Culture Gram Stain - Preliminary Blood Blood Culture - Preliminary Staphylococcus aureus Assessment and Plan Assessment: 65-year-old male admitted to the hospital with UTI, gross hematuria. His gross hematuria has resolved, urine culture and blood culture growing pansensitive staph aureus. Infectious diseases on board -Jimenez can be removed when patient is no longer febrile -Continue the Cardura, and the Proscar
[2020-11-18] MEDS: VANCOMYCIN 1,500 MG in SODIUM CHLORIDE 0.9% 250 ML IVPB SCH ×2 (15:32→23:47)
[2020-11-18] MEDS: TAMSULOSIN 0.4 MG CAP.ER.24H PO SCH (17:52)
[2020-11-18] MEDS: SODIUM CHLORIDE 0.9% 1,000 ML IV SCH ×2 (19:04→19:05)
[2020-11-19] MEDS: HYDROmorphone 0.5 MG/0.5 ML SYRINGE IVP PRN (01:07)
[2020-11-19] MEDS: ACETAMINOPHEN TAB 325 MG TAB PO PRN (02:33)
[2020-11-19] MEDS ORDERED: VANCOMYCIN TROUGH DUE 1 EACH MISC MISCELLANE ONE (07:00)
[2020-11-19] MEDS: NICOTINE 14MG/24HR PATCH TRANSDERM SCH (07:16)
[2020-11-19] MEDS: DOXAZOSIN 4 MG TAB PO SCH ×2 (07:20→19:47)
[2020-11-19] MEDS: CYANOCOBALAMIN 500 MCG TAB PO SCH (07:20)
[2020-11-19] MEDS: PANTOPRAZOLE 40 MG TABLET PO SCH (07:20)
[2020-11-19] MEDS: CHOLECALCIFEROL 25 MCG (1000 IU) TABLET PO SCH (07:20)
[2020-11-19] MEDS: VANCOMYCIN 1,500 MG in SODIUM CHLORIDE 0.9% 250 ML IVPB SCH (07:20)
[2020-11-19] MEDS: LOSARTAN 50 MG TAB PO SCH (07:21)
[2020-11-19] MEDS: FINASTERIDE 5 MG TAB PO SCH (07:21)
--- NOTE | 2020-11-19 08:33 | P.PN ---
Subjective Progress Note Date: 11/18/20 Pt again febrile overnight, reports mild suprapubic pain but is improved. Urine culture growing aquino-sensitive staph aureus, ID consulted and gentamycin switched to vancomycin Objective - Vital Signs Vital signs: Vital Signs Temp 98.9 F 11/19/20 06:05 Pulse 64 11/19/20 07:19 Resp 18 11/19/20 03:31 BP 157/57 11/19/20 07:19 Pulse Ox 95 11/19/20 07:19 Intake & Output 11/18/20 11/19/20 11/19/20 18:59 06:59 18:59 Intake Total 250 1790 Output Total 2550 3200 900 Balance -2300 -1410 -900 Intake: Intake, IV Titration 250 1200 Amount Sodium Chloride 0.9% 1, 900 000 ml @ 75 mls/hr IV . [id number] [facility] Rx#:[id number] Vancomycin 1,500 mg In 250 250 Sodium Chloride 0.9% 250 ml @ 125 mls/hr IVPB Q8HR [facility] Rx#:[id number] cefTRIAXone 2 gm In 50 Sodium Chloride 0.9% 50 ml @ 100 mls/hr IVPB Q24H [facility] Rx#:[id number] Oral 590 Output: Urine 2550 3200 900 Uretheral (Wong) 2550 3200 900 Other: Voiding Method Indwelling Catheter Indwelling Catheter Indwelling Catheter - Exam Gen: well developed, well nourished, NAD HEENT: normocephalic, atraumatic CV: RRR, no murmur Lungs: normal effort, clear throughout Abd: mild suprapubic tenderness - Labs CBC & Chem 7: 11/17/20 07:39 11/19/20 06:35 Labs: Microbiology - Last 24 Hours (Table) 11/15/20 23:51 Blood Culture Gram Stain - Final Blood Blood Culture - Final Staphylococcus aureus 11/15/20 23:51 Blood Culture Gram Stain - Final Blood Blood Culture - Final Staphylococcus aureus 11/17/20 11:27 Blood Culture - Preliminary Blood No Growth after 24 hours 11/17/20 11:48 Blood Culture - Preliminary Blood No Growth after 24 hours 11/15/20 23:51 Urine Culture - Final Urine,Voided Staphylococcus aureus Assessment and Plan Plan: Continue wong catheter and continue with vancomycin at this time. ID following. continue remainder of home medications
--- NOTE | 2020-11-19 14:18 | PN ---
PROGRESS NOTE DATE OF SERVICE: 11/19/2020 REASON FOR FOLLOWUP: MSSA bacteremia secondary to complicated urinary tract infection. INTERVAL HISTORY: The patient did spike another fever this morning of 100.4 degrees Fahrenheit and has been afebrile since then. The patient is currently feeling better, breathing comfortably. Denies having any chest pain, shortness of breath or cough. No abdominal pain or diarrhea. PHYSICAL EXAMINATION: Blood pressure 157/57 with a pulse of 64, temperature 98.9. He is 95% on room air. General description is a middle-aged male lying in bed in no distress. RESPIRATORY SYSTEM: Unlabored breathing. Clear to auscultation anteriorly. HEART: S1, S2. Regular rate and rhythm. ABDOMEN: Soft. No tenderness. LABS: Creatinine 1.06. Blood culture repeat is so far negative. urine has been finalized with MSSA. DIAGNOSTIC IMPRESSION AND PLAN: Patient with MSSA bacteremia secondary to complicated urinary tract infection. The patient will need a midline and outpatient IV antibiotic therapy. Will keep the patient for another 24 hours, as he did have a fever last night, to make sure the patient is afebrile and his blood culture is negative before placing a midline for outpatient IV antibiotic therapy. Continue supportive care. MMODL / IJN: [id number] /
[2020-11-19] MEDS: TAMSULOSIN 0.4 MG CAP.ER.24H PO SCH (17:53)
[2020-11-19] MEDS: SODIUM CHLORIDE 0.9% 1,000 ML IV SCH (17:57)
--- NOTE | 2020-11-19 20:09 | P.PN ---
Subjective Urine remains clear this morning, was febrile overnight. Denies any dysuria or abdominal pain Objective - Vital Signs Vital signs: Vital Signs Temp 99.4 F 11/19/20 13:00 Pulse 62 11/19/20 13:00 Resp 20 11/19/20 13:00 BP 141/64 11/19/20 13:00 Pulse Ox 94 L 11/19/20 13:00 Intake & Output 11/19/20 11/19/20 11/20/20 06:59 18:59 06:59 Intake Total 1790 Output Total 3200 993 Balance -1410 -993 Intake: Intake, IV Titration 1200 Amount Sodium Chloride 0.9% 1, 900 000 ml @ 75 mls/hr IV . [id number] [facility] Rx#:[id number] Vancomycin 1,500 mg In 250 Sodium Chloride 0.9% 250 ml @ 125 mls/hr IVPB Q8HR [facility] Rx#:[id number] cefTRIAXone 2 gm In 50 Sodium Chloride 0.9% 50 ml @ 100 mls/hr IVPB Q24H [facility] Rx#:[id number] Oral 590 Output: Urine 3200 900 Uretheral (Wong) 3200 900 Post Void Residual 93 Other: Voiding Method Indwelling Catheter Indwelling Catheter # Voids 3 - Genitourinary Genitourinary Comment(s): urine clear this am - Psychiatric Psychiatric: Present: A&O x's 3 - Labs CBC & Chem 7: 11/17/20 07:39 11/19/20 06:35 Labs: Microbiology - Last 24 Hours (Table) 11/17/20 11:27 Blood Culture - Preliminary Blood No Growth after 48 hours 11/17/20 11:48 Blood Culture - Preliminary Blood No Growth after 48 hours 11/15/20 23:51 Blood Culture Gram Stain - Final Blood Blood Culture - Final Staphylococcus aureus 11/15/20 23:51 Blood Culture Gram Stain - Final Blood Blood Culture - Final Staphylococcus aureus Assessment and Plan Assessment: 65-year-old male admitted to the hospital with UTI, gross hematuria. His gross hematuria has resolved, urine culture and blood culture growing pansensitive staph aureus. Infectious diseases on board -Ok to remove wong catheter, will obtain PVR after patient voids -Continue the Cardura, and the Proscar
--- NOTE | 2020-11-19 22:43 | P.PN ---
Subjective Progress Note Date: 11/19/20 He continues on vancomycin, doing well and reports his pain is currently minimal. Jimenez removed today and pt voiding without difficulty. Objective - Vital Signs Vital signs: Vital Signs Temp 98.8 F 11/19/20 19:30 Pulse 64 11/19/20 19:30 Resp 20 11/19/20 19:30 BP 158/67 11/19/20 19:30 Pulse Ox 95 11/19/20 19:30 Intake & Output 11/19/20 11/19/20 11/20/20 06:59 18:59 06:59 Intake Total 1790 100 Output Total 3200 993 Balance -1410 -993 100 Intake: Intake, IV Titration 1200 Amount Sodium Chloride 0.9% 1, 900 000 ml @ 75 mls/hr IV . [id number] [facility] Rx#:[id number] Vancomycin 1,500 mg In 250 Sodium Chloride 0.9% 250 ml @ 125 mls/hr IVPB Q8HR [facility] Rx#:[id number] cefTRIAXone 2 gm In 50 Sodium Chloride 0.9% 50 ml @ 100 mls/hr IVPB Q24H [facility] Rx#:[id number] Oral 590 100 Output: Urine 3200 900 Uretheral (Jimenez) 3200 900 Post Void Residual 93 Other: Voiding Method Indwelling Catheter Indwelling Catheter Indwelling Catheter # Voids 3 - Exam Gen: well developed, well nourished, NAD HEENT: normocephalic, atraumatic CV: RRR, no murmur Lungs: normal effort, clear throughout Abd: mild suprapubic tenderness - Labs CBC & Chem 7: 11/17/20 07:39 11/19/20 06:35 Labs: Microbiology - Last 24 Hours (Table) 11/17/20 11:27 Blood Culture - Preliminary Blood No Growth after 48 hours 11/17/20 11:48 Blood Culture - Preliminary Blood No Growth after 48 hours Assessment and Plan Plan: Continue with vancomycin, schedule midline for outpatient IV abx per ID. Continue remainder of medications
[2020-11-20] MEDS: SODIUM CHLORIDE 0.9% 1,000 ML IV SCH (03:47)
[2020-11-20 07:34] VITALS: RESP 18; TEMP 98
[2020-11-20] MEDS: NICOTINE 14MG/24HR PATCH TRANSDERM SCH (08:31)
[2020-11-20] MEDS: LOSARTAN 50 MG TAB PO SCH (08:31)
[2020-11-20] MEDS: CYANOCOBALAMIN 500 MCG TAB PO SCH (08:31)
[2020-11-20] MEDS: FINASTERIDE 5 MG TAB PO SCH (08:31)
[2020-11-20] MEDS: CHOLECALCIFEROL 25 MCG (1000 IU) TABLET PO SCH (08:32)
[2020-11-20] MEDS: PANTOPRAZOLE 40 MG TABLET PO SCH (08:34)
[2020-11-20] MEDS: DOXAZOSIN 4 MG TAB PO SCH (08:49)
[2020-11-20 11:35] VITALS: BP 152/67; PULSE 74
--- NOTE | 2020-11-20 14:48 | PN ---
PROGRESS NOTE DATE OF SERVICE: 11/20/2020 REASON FOR FOLLOWUP: MSSA complicated UTI with bacteremia. INTERVAL HISTORY: Patient is afebrile. The patient is breathing comfortably. Patient denies having any chest pain, shortness of breath or cough. No nausea, no vomiting. No abdominal pain or diarrhea. The patient did get a midline and currently waiting for discharge antibiotic arrangement. PHYSICAL EXAMINATION: Blood pressure 152/67 with a pulse of 74, temperature of 98. He is 95% on room air. General description is a middle-aged male lying in bed in no distress. Respiratory system: Unlabored breathing, clear to auscultation anteriorly. Heart S1, S2. Regular rate and rhythm. Abdomen soft, no tenderness. LABS: Creatinine 1.10. Blood cultures 11/17 has been negative. DIAGNOSTIC IMPRESSION AND PLAN: Patient with MSSA bacteremia secondary to complicated urinary tract infection in this patient that has shown overall clinical improvement. Finish therapy with IV cefazolin 2 grams q.8 hours for 2 weeks and close outpatient followup. MMODL / IJN: [id number] /
--- NOTE | 2020-11-20 19:12 | P.PN ---
Subjective Urine remains clear this morning, was afebrile overnight. Jimenez removed yesterday, PVR is 93 mL Objective - Vital Signs Vital signs: Vital Signs Temp 98.0 F 11/20/20 11:10 Pulse 74 11/20/20 11:10 Resp 18 11/20/20 11:10 BP 152/67 11/20/20 11:10 Pulse Ox 95 11/20/20 11:10 Intake & Output 11/20/20 11/20/20 11/21/20 06:59 18:59 06:59 Intake Total 100 Balance 100 Intake: Oral 100 Other: Voiding Method Indwelling Catheter Toilet # Voids 2 - Constitutional General appearance: Present: no acute distress - Psychiatric Psychiatric: Present: A&O x's 3 - Labs CBC & Chem 7: 11/17/20 07:39 11/20/20 05:36 Labs: Microbiology - Last 24 Hours (Table) 11/17/20 11:48 Blood Culture - Preliminary Blood No Growth after 72 hours 11/17/20 11:27 Blood Culture - Preliminary Blood No Growth after 72 hours Assessment and Plan Assessment: 65-year-old male admitted to the hospital with UTI, gross hematuria. His gross hematuria has resolved, urine culture and blood culture growing pansensitive staph aureus. Infectious diseases on board -Continue the Cardura, and the Proscar -Carline for discharge from urology standpoint
--- NOTE | 2020-11-21 14:54 | P.DS ---
Providers Date of admission: 11/16/20 02:25 Expected date of discharge: 11/20/20 Attending physician: Con Burnette MD Consults: 11/16/20 02:41 Consult Physician Routine Consulting Provider: Javan Herrera Consult Reason/Comments: Prostatitis?; UTI Do you want consulting provider notified?: Yes 11/17/20 10:16 Consult Physician Routine Consulting Provider: Lionel Medel Consult Reason/Comments: Fevers Do you want consulting provider notified?: Yes Primary care physician: Sujatha Burnette Hospital Course: Final Diagnoses: Acute UTI with sepsis, urine culture growing presumptive staph MSSA Bacteremia secondary to complicated UTI Hematuria status post Jimenez catheter, resolved. Hospital course: This a 65-year-old gentleman admitted with urinary retention, hematuria ,status post recent cystoscopy with suprapubic tenderness, fevers and multiple other medical issues. Evaluated by both infectious disease and urology. Maintained on gentle IV fluid hydration, IV antibiotics. Hematuria resolved. Spontaneously voiding post removal of Jimenez catheter. Denies any dysuria or abdominal pain. Afebrile. Significant clinical improvement. Patient will be discharged home today in stable condition with her prognosis pending midline placement, IV antibiotics as per ID. The impression and plan of care has been dictated as directed. : I performed a history and examination of this patient, discussed the same with the dictator. I agree with the dictator's note ,documented as a scribe. Any additional findings or plans will be noted. Patient Condition at Discharge: Stable Plan - Discharge Summary Discharge Rx Participant: No New Discharge Prescriptions: New Nicotine 14Mg/24Hr Patch [Habitrol] 1 patch TRANSDERM DAILY patch Tamsulosin [Flomax] 0.4 mg PO PC-SUPPER #30 cap Continue Cyanocobalamin [Vitamin B-12] 500 mcg PO DAILY Cholecalciferol [Vitamin D3 (25 Mcg = 1000 Iu)] 2,000 unit PO DAILY Terazosin HCl [Hytrin] 10 mg PO BID Finasteride [Proscar] 5 mg PO DAILY Losartan Potassium 50 mg PO DAILY Discharge Medication List Cholecalciferol [Vitamin D3 (25 Mcg = 1000 Iu)] 2,000 unit PO DAILY 02/12/16 [History] Cyanocobalamin [Vitamin B-12] 500 mcg PO DAILY 02/12/16 [History] Finasteride [Proscar] 5 mg PO DAILY 02/12/16 [History] Terazosin HCl [Hytrin] 10 mg PO BID 02/12/16 [History] Losartan Potassium 50 mg PO DAILY 11/16/20 [History] Tamsulosin [Flomax] 0.4 mg PO PC-SUPPER #30 cap 11/19/20 [Rx] Nicotine 14Mg/24Hr Patch [Habitrol] 1 patch TRANSDERM DAILY patch 11/20/20 [Rx] Follow up Appointment(s)/Referral(s): Javan Herrera MD [STAFF PHYSICIAN] - 12/02/20 8:00 am Sujatha Burnette DO [Primary Care Provider] - 11/21/20 2:00 pm (Appointment is with Dr. Jeanne Rogers at the [place] office. The address is [address] [place] [address] and the office phone number is [phone].) [facility], [NON-STAFF] - 1 Week [facility], [REFERRING] - 1 Week Lionel Medel MD [STAFF PHYSICIAN] - 1 Week Ambulatory/Diagnostic Orders: Complete Blood Count w/diff [LAB.AMB] Time Frame: 3 Days, Location: None Selected Patient Instructions/Handouts: Urinary Tract Infection in Men (DC), Hematuria (GEN) Activity/Diet/Wound Care/Special Instructions: Midline catheter placement, antibiotics as per ID Discharge Disposition: HOME WITH HOME HEALTH SERVICES
== END 2020-11-20 16:35 | disposition home health service (06) | DRG 872 ==
LOC: EC 17:52 → 5NMEDONC 11-16 02:25
PROVIDERS: ADMIT Family Medicine; ATTEND Family Medicine
PROC: 05HB33Z Insertion of Infusion Device into Right Basilic Vein, Percutaneous Approach (ICD-10-PCS; principal; 2020-11-20 07:30)
DX: A41.01 Sepsis due to Methicillin susceptible Staphylococcus aureus (principal); N39.0 Urinary tract infection, site not specified; E87.1 Hypo-osmolality and hyponatremia; N41.0 Acute prostatitis; N13.8 Other obstructive and reflux uropathy; N40.1 Benign prostatic hyperplasia with lower urinary tract symptoms; R31.0 Gross hematuria; R33.8 Other retention of urine; D69.6 Thrombocytopenia, unspecified; Z20.822 Contact with and (suspected) exposure to COVID-19; Z87.891 Personal history of nicotine dependence; Z79.899 Other long term (current) drug therapy
CPT/HCPCS: 36410; 36415; 76937; 80048; 80053; 80170; 80202; 81001; 82565; 83605; 85025; 85610; 85730; 87040; 87077; 87086; 87186; 87635; 93005; 96361; 96365; 96367; 96375; 99285

== ENCOUNTER → 2020-12-12 | Outpatient (CLI) | payer BC | END | disposition home or self-care (01) | LOC: LABWHC1 07:44 | PROVIDERS: ATTEND Internal Medicine Infectious Disease | DX: R78.81 Bacteremia (principal) | CPT/HCPCS: 36415; 87040 ==

== ENCOUNTER 2024-06-13 12:27 | Observation (INO) | payer MEDICARE ==
--- NOTE | 2024-06-13 13:19 | ED ---
General Adult HPI - General Chief complaint: Arrhythmia/Palpitations Stated complaint: High heartrate, fall, no head injury Time Seen by Provider: 06/13/24 12:35 Source: patient, RN notes reviewed, old records reviewed Mode of arrival: ambulatory Limitations: no limitations - History of Present Illness Initial comments: Is a 68-year-old male who presents to the emergency department with a past medical history significant for prostate problems and hypertension. Patient presents today because he feels his heart racing and it seems to come and go and then he got so lightheaded at 1 point he almost fell over but his helped him so he did not fall or injure himself. Patient states he still feels his heart racing out. Patient denies any chest pain but states he does have some mild shortness of breath and did feel lightheaded earlier. Patient denies any recent fever chills or cough. Patient denies any history of atrial fibrillation or rapid heartbeat. Patient Nuys any cardiac disease that he knows of. Patient used to chew tobacco but does not any longer does not smoke - Related Data Home Medications Medication Instructions Recorded Confirmed Cholecalciferol [Vitamin D3 (25 2,000 unit PO DAILY 02/12/16 11/16/20 Mcg = 1000 Iu)] Cyanocobalamin [Vitamin B-12] 500 mcg PO DAILY 02/12/16 11/16/20 Finasteride [Proscar] 5 mg PO DAILY 02/12/16 11/16/20 Terazosin HCl [Hytrin] 10 mg PO BID 02/12/16 11/16/20 Losartan Potassium 50 mg PO DAILY 11/16/20 11/16/20 Previous Rx's Medication Instructions Recorded Tamsulosin [Flomax] 0.4 mg PO PC-SUPPER #30 cap 11/19/20 Nicotine 14Mg/24Hr Patch [Habitrol] 1 patch TRANSDERM DAILY patch 11/20/20 Allergies Allergy/AdvReac Type Severity Reaction Status Date / Time No Known Allergies Allergy Verified 06/13/24 12:33 Review of Systems ROS Statement: Those systems with pertinent positive or pertinent negative responses have been documented in the HPI. ROS Other: All systems not noted in ROS Statement are negative. Past Medical History Past Medical History: Prostate Disorder Additional Past Medical History / Comment(s): enlarged prostate History of Any Multi-Drug Resistant Organisms: None Reported Past Surgical History: Hernia Repair Additional Past Surgical History / Comment(s): colonoscopy Past Anesthesia/Blood Transfusion Reactions: No Reported Reaction Additional Past Anesthesia/Blood Transfusion Reaction / Comment(s): never has had blood transfusion Past Psychological History: No Psychological Hx Reported Smoking Status: Never smoker Past Alcohol Use History: None Reported Past Drug Use History: None Reported - Past Family History Mother Family Medical History: Cancer Father Family Medical History: Deep Vein Thrombosis (DVT) Additional Family Medical History / Comment(s): green field filter General Exam - General Exam Comments Initial Comments: GENERAL: Patient is well-developed and well-nourished. Patient is nontoxic and well- hydrated and is in mild distress. ENT: Neck is soft and supple. No significant lymphadenopathy is noted. Oropharynx is clear. Moist mucous membranes. Neck has full range of motion without eliciting any pain. EYES: The sclera were anicteric and conjunctiva were pink and moist. Extraocular movements were intact and pupils were equal round and reactive to light. Eyelids were unremarkable. PULMONARY: Unlabored respirations. Good breath sounds bilaterally. No audible rales rhonchi or wheezing was noted. CARDIOVASCULAR: Is tachycardic with an irregular heartbeat. ABDOMEN: Soft and nontender with normal bowel sounds. SKIN: Skin is clear with no lesions or rashes and otherwise unremarkable. NEUROLOGIC: Patient is alert and oriented x3. Cranial nerves II through XII are grossly intact. Motor and sensory are also intact. Normal speech, volume and content. Symmetrical smile. MUSCULOSKELETAL: Normal extremities with adequate strength and full range of motion. LYMPHATICS: No significant lymphadenopathy is noted PSYCHIATRIC: Normal psychiatric evaluation. Limitations: no limitations Course Vital Signs 06/13/24 06/13/24 06/13/24 12:29 13:25 14:00 Temperature 97.7 F Pulse Rate 65 98 67 Respiratory 18 18 14 Rate Blood Pressure 179/63 123/69 124/67 O2 Sat by Pulse 96 96 95 Oximetry Medical Decision Making - Medical Decision Making I interpreted by myself her EKG shows atrial fibrillation with rapid ventricular response at 132 bpm QRS is 96 QT interval is 310 QTc is 388. Patient's EKG shows no ST segment elevation or depression Was pt. sent in by a medical professional or institution (, PA, COSMETIC SURGEON, urgent care, hospital, or assisted...) When possible be specific @ -No Did you speak to anyone other than the patient for history (EMS, parent, family, police, friend...)? What history was obtained from this source @ -No Did you review nursing and triage notes (agree or disagree)? Why? @ -I reviewed and agree with nursing and triage notes Were old charts reviewed (outside hosp., previous admission, EMS record, old EKG, old radiological studies, urgent care reports/EKG's, assisted records)? Report findings @ -No old charts were reviewed Differential Diagnosis? @ -Differential Palpitations Ventricular arrhythmias, atrial arrhythmias, myocardial infarction, anemia, thyrotoxicosis, electrolyte imbalance, hypokalemia, pulmonary embolism, pulmonary disease, drugs, alcohol, anxiety, stress.... This is not meant to be an all-inclusive list. EKG interpreted by me (3pts min.). @ -As above X-rays interpreted by me (1pt min.). @ -Chest x-ray shows no acute abnormality CT interpreted by me (1pt min.). @ -None done U/S interpreted by me (1pt. min.). @ -None done What testing was considered but not performed or refused? (CT, X-rays, U/S, labs)? Why? @ -None What meds were considered but not given or refused? Why? @ -None Did you discuss the management of the patient with other professionals (professionals i.e. , PA, COSMETIC SURGEON, lab, RT, psych nurse, social science analyst, supervisor fishing, teacher, security officers and guards, case loader operator)? Give summary @ -I spoke with [facility]ist they agreed to admit the patient admit the patient wrote admitting orders Was smoking cessation discussed for >3mins.? @ -No Was critical care preformed (if so, how long)? @ -35 minutes Were there social determinants of health that impacted care today? How? (Homelessness, low income, unemployed, alcoholism, drug addiction, transportation, low edu. Level, literacy, decrease access to med. care, [facility], rehab)? @ -No Was there de-escalation of care discussed even if they declined (Discuss DNR or withdrawal of care, Hospice)? DNR status @ -No What co-morbidities impacted this encounter? (DM, HTN, Smoking, COPD, CAD, Cancer, CVA, ARF, Chemo, Hep., AIDS, mental health diagnosis, sleep apnea, morbid obesity)? @ -None Was patient admitted / discharged? Hospital course, mention meds given and route, prescriptions, significant lab abnormalities, going to OR and other pertinent info. @ -Patient was started on Cardizem and then a Cardizem drip. Patient also was given a heparin bolus with a heparin drip patient will be admitted to [facility] with a consult to cardiology. Undiagnosed new problem with uncertain prognosis? @ -No Drug Therapy requiring intensive monitoring for toxicity (Heparin, Nitro, Insulin, Cardizem)? @ -No Were any procedures done? @ -No Diagnosis/symptom? @ -A-fib with rapid ventricular response Acute, or Chronic, or Acute on Chronic? @ -Acute Uncomplicated (without systemic symptoms) or Complicated (systemic symptoms)? @ -Default Side effects of treatment? @ -No Exacerbation, Progression, or Severe Exacerbation? @ -No Poses a threat to life or bodily function? How? (Chest pain, USA, ND, pneumonia, PE, COPD, DKA, ARF, appy, cholecystitis, CVA, Diverticulitis, Homicidal, Suicidal, threat to staff... and all critical care pts) @ -Yes this could lead to hypoxia and/or stroke. - Lab Data Result diagrams: 06/13/24 13:14 06/13/24 13:26 Lab Results 06/13/24 06/13/24 06/13/24 Range/Units 13:14 13:26 13:26 WBC 5.28 (4.50-10.00) 10*3/uL RBC 4.70 (4.40-5.60) 10*6/uL Hgb 14.1 (13.0-17.0) g/dL Hct 40.3 (39.6-50.0) % MCV 85.7 (80.0-97.0) fL MCH 30.0 (27.0-32.0) pg MCHC 35.0 (32.0-37.0) g/dL Plt Count 172 (140-440) 10*3/uL MPV 10.2 (9.5-12.2) fL Immature Gran % (Auto) 0.2 % Neutrophils % 68.1 % Lymphocytes % 20.6 % Monocytes % 7.6 % Eosinophils % 2.7 % Basophils % 0.8 % Immature Gran # 0.01 (0.00-0.04) 10*3/uL Neutrophils # 3.60 (1.80-7.70) 10*3/uL Lymphocytes # 1.09 (0.90-5.00) 10*3/uL Monocytes # 0.40 (0.20-1.00) 10*3/uL Eosinophils # 0.14 (0.04-0.35) 10*3/uL Basophils # 0.04 (0.00-0.10) 10*3/uL PT 10.3 (10.0-12.5) sec INR 0.9 (<1.2) APTT 24.1 (22.0-30.0) sec Sodium 140 (137-145) mmol/L Potassium 4.1 (3.5-5.1) mmol/L Chloride 108 H (98-107) mmol/L Carbon Dioxide 27 (22-30) mmol/L Anion Gap 5 mmol/L BUN 25 H (9-20) mg/dL Creatinine 0.99 (0.66-1.25) mg/dL Est GFR (CKD-EPI)AfAm >90 (>60 ml/min/1.73 sqM) Est GFR (CKD-EPI)NonAf 79 (>60 ml/min/1.73 sqM) Glucose 111 H (74-99) mg/dL Calcium 10.0 (8.4-10.2) mg/dL Magnesium 2.0 (1.6-2.3) mg/dL Total Bilirubin 0.8 (0.2-1.3) mg/dL AST 24 (17-59) U/L ALT 22 (4-49) U/L Alkaline Phosphatase 72 (38-126) U/L Troponin I (0.000-0.034) ng/mL Total Protein 6.3 (6.3-8.2) g/dL Albumin 3.7 (3.5-5.0) g/dL TSH 1.580 (0.465-4.680) mIU/L 06/13/24 Range/Units 13:26 WBC (4.50-10.00) 10*3/uL RBC (4.40-5.60) 10*6/uL Hgb (13.0-17.0) g/dL Hct (39.6-50.0) % MCV (80.0-97.0) fL MCH (27.0-32.0) pg MCHC (32.0-37.0) g/dL Plt Count (140-440) 10*3/uL MPV (9.5-12.2) fL Immature Gran % (Auto) % Neutrophils % % Lymphocytes % % Monocytes % % Eosinophils % % Basophils % % Immature Gran # (0.00-0.04) 10*3/uL Neutrophils # (1.80-7.70) 10*3/uL Lymphocytes # (0.90-5.00) 10*3/uL Monocytes # (0.20-1.00) 10*3/uL Eosinophils # (0.04-0.35) 10*3/uL Basophils # (0.00-0.10) 10*3/uL PT (10.0-12.5) sec INR (<1.2) APTT (22.0-30.0) sec Sodium (137-145) mmol/L Potassium (3.5-5.1) mmol/L Chloride (98-107) mmol/L Carbon Dioxide (22-30) mmol/L Anion Gap mmol/L BUN (9-20) mg/dL Creatinine (0.66-1.25) mg/dL Est GFR (CKD-EPI)AfAm (>60 ml/min/1.73 sqM) Est GFR (CKD-EPI)NonAf (>60 ml/min/1.73 sqM) Glucose (74-99) mg/dL Calcium (8.4-10.2) mg/dL Magnesium (1.6-2.3) mg/dL Total Bilirubin (0.2-1.3) mg/dL AST (17-59) U/L ALT (4-49) U/L Alkaline Phosphatase (38-126) U/L Troponin I 0.020 (0.000-0.034) ng/mL Total Protein (6.3-8.2) g/dL Albumin (3.5-5.0) g/dL TSH (0.465-4.680) mIU/L Disposition Clinical Impression: Atrial fibrillation with RVR Disposition: ADMITTED IP TO THIS HOSP Referrals: Sujatha Burnette DO [Primary Care Provider] - 1-2 days Time of Disposition: 14:49
[2024-06-13 13:30] LABS: Basophils # (A) 0.04 10*3/uL (0.00-0.10); Basophils % (A) 0.8 %; Eosinophils # (A) 0.14 10*3/uL (0.04-0.35); Eosinophils % (A) 2.7 %; HCT 40.3 % (39.6-50.0); HGB 14.1 g/dL (13.0-17.0); Lymphocytes # (A) 1.09 10*3/uL (0.90-5.00); Lymphocytes % (A) 20.6 %; MCV 85.7 fL (80.0-97.0); Mean Platelet Volume 10.2 fL (9.5-12.2); Monocytes % (A) 7.6 %; Neutrophils % (A) 68.1 %; Platelet Count 172 10*3/uL (140-440); RDW 12.9 % (11.5-14.5); WBC 5.28 10*3/uL (4.50-10.00)
[2024-06-13] MEDS: DILTIAZEM 5 MG/ML 5 ML VIAL IVP STA (13:30)
[2024-06-13] MEDS: DILTIAZEM 125 MG in DEXTROSE 5% IN WATER 100 ML IV SCH (13:33)
[2024-06-13] MEDS: SODIUM CHLORIDE 0.9% 500 ML 500 ML IV STA (13:33)
[2024-06-13 13:41] LABS: INR 0.9 (<1.2); Partial Thromboplastin Time 24.1 sec (22.0-30.0); Prothrombin Time 10.3 sec (10.0-12.5)
[2024-06-13 13:42] LABS: ALT 22 U/L (4-49); AST 24 U/L (17-59); African American GFR (CKD) >90 (>60 ml/min/1.73 sqM); Albumin 3.7 g/dL (3.5-5.0); Alkaline Phosphatase 72 U/L (38-126); Anion Gap 5 mmol/L; Blood Urea Nitrogen 25 mg/dL (9-20); Carbon Dioxide 27 mmol/L (22-30); Chloride 108 mmol/L (98-107); Glucose 111 mg/dL (74-99); Non-African American GFR(CKD) 79 (>60 ml/min/1.73 sqM); Potassium 4.1 mmol/L (3.5-5.1); Sodium 140 mmol/L (137-145); Total Bilirubin 0.8 mg/dL (0.2-1.3); Total Protein 6.3 g/dL (6.3-8.2)
--- NOTE | 2024-06-13 14:35 | XR ---
EXAMINATION TYPE: XR chest 2V DATE OF EXAM: 06/13/2024 1:50 PM COMPARISON: None CLINICAL INDICATION: Male, 68 years old with history of dysrhythmia, shortness of breath TECHNIQUE: PA and lateral views FINDINGS: Heart upper limits of normal in size. Some strandy atelectasis in the lower lungs. Primary vasculatur e within normal limits. No consolidation or pleural effusion. IMPRESSION: Borderline heart size. No acute process seen. [facility], Workstation: [facility], 06/13/2024 1:57 PM
[2024-06-13] MEDS: HEPARIN SODIUM 1,000 UN/ML (10ML VL) IV ONE (15:12)
[2024-06-13] MEDS: HEPARIN SOD,PORK IN 0.45% NACL 25,000 UNIT in 0.45% NACL 1 250ML.BAG IV SCH (15:13)
[2024-06-13 16:28] LABS: Amphetamine Screen,Urine Not Detected (NotDetected); Barbiturate Screen,Urine Not Detected (NotDetected); Benzodiazepines Screen,Urine Not Detected (NotDetected); Cocaine Screen,Urine Not Detected (NotDetected); Methadone Screen, Urine Not Detected (NotDetected); Opiate Screen,Urine Not Detected (NotDetected); Oxycodone Screen, Urine Not Detected (NotDetected); Phencyclidine Screen,Urine Not Detected (NotDetected); Tricyclic Antidepressant,Urine Not Detected (NotDetected); Urn Cannabinoid Scrn Not Detected (NotDetected)
--- NOTE | 2024-06-13 22:39 | P.HPIM ---
History of Present Illness H&P Date: 06/13/24 Chief Complaint: Heart beating up fast Patient 68-year-old male with a known history of hypertension, BPH, history of tobacco use quit 5 years ago presents to ER with complaints of heart beating of fast. Patient states that she went to urinate and when he came back suddenly started having heart beating of fast and felt dizzy and lightheaded and almost fell over but his helped him to prevent any fall. Denied any prior history of atrial fibrillation. Denied any chest pain. He did have some mild shortness of breath but improved now. No fever no chills. Any recent illnesses. No cough or sputum production. No recent travel. Laboratory data showed WBC 5.2 hemoglobin 14.1 and platelets 172 sodium 140 potassium 4.1 chloride 108 bicarb is 27 BUN 25 creatinine 0.9 and blood sugar 111 TSH 1.58 liver enzymes not evaded. Troponin 0.02 UDS negative. Chest x-ray showed borderline heart size with no acute process seen. EKG 1 showed atrial fibrillation with rapid ventricular response. EKG 2 showed sinus bradycardia with first-degree AV block. Patient was started on Cardizem drip and heparin drip. Review of Systems Constitutional: Patient denies any fever or chills . No generalized weakness or weight loss. Abdomen: Patient denied nausea vomiting and diarrhea and abdominal pain. Cardiovascular: Patient denies any chest pain or short of breath. Did have palpitations. Respiratory: patient denied any cough or sputum production. No shortness of breath Neurologic: Patient denied any numbness or tingling. no headache. Musculoskeletal: Patient denies any complaints of joint swelling or deformity. Skin: Negative Psychiatric: Negative Endocrine: No heat or cold intolerance. No recent weight gain. Genitourinary: No dysuria or hematuria. All other 14 point ROS negative except the above Past Medical History Past Medical History: Prostate Disorder Additional Past Medical History / Comment(s): enlarged prostate History of Any Multi-Drug Resistant Organisms: None Reported Past Surgical History: Hernia Repair Additional Past Surgical History / Comment(s): colonoscopy Past Anesthesia/Blood Transfusion Reactions: No Reported Reaction Additional Past Anesthesia/Blood Transfusion Reaction / Comment(s): never has had blood transfusion Past Psychological History: No Psychological Hx Reported Smoking Status: Never smoker Past Alcohol Use History: None Reported Past Drug Use History: None Reported - Past Family History Mother Family Medical History: Cancer Father Family Medical History: Deep Vein Thrombosis (DVT) Additional Family Medical History / Comment(s): green field filter Medications and Allergies Home Medications Medication Instructions Recorded Confirmed Type Cholecalciferol [Vitamin D3 (25 50 mcg PO DAILY 02/12/16 06/13/24 History Mcg = 1000 Iu)] Cyanocobalamin [Vitamin B-12] 500 mcg PO DAILY 02/12/16 06/13/24 History Finasteride [Proscar] 5 mg PO DAILY 02/12/16 06/13/24 History Terazosin HCl [Hytrin] 10 mg PO BID 02/12/16 06/13/24 History Losartan Potassium 100 mg PO DAILY 06/13/24 06/13/24 History Allergies Allergy/AdvReac Type Severity Reaction Status Date / Time No Known Allergies Allergy Verified 06/13/24 16:02 Physical Exam Vitals: Vital Signs Temp Pulse Resp BP Pulse Ox 06/13/24 21:39 97.9 F 53 L 19 145/68 96 06/13/24 18:00 63 20 125/60 95 06/13/24 17:00 64 16 130/64 95 06/13/24 16:00 60 16 133/70 95 06/13/24 15:00 77 16 120/74 95 06/13/24 14:00 67 14 124/67 95 06/13/24 13:25 98 18 123/69 96 06/13/24 12:29 97.7 F 65 18 179/63 96 Intake and Output 06/13/24 06/13/24 06/13/24 06:59 14:59 22:59 Intake Total 3.917 Balance 3.917 Intake: Intake, IV Titration 3.917 Amount Diltiazem 125 mg In 3.917 Dextrose 5% in Water 100 ml @ 5 MG/HR 5 mls/hr IV .Q24H [facility] Rx#:[id number] Other: Weight 102.058 kg PHYSICAL EXAMINATION: Patient is lying in the bed comfortably, no acute distress, awake alert and oriented.. HEENT: Normocephalic. Neck is supple. Pupils reactive. Nostrils clear. Oral cavity is moist. Neck reveals no JVD, carotid bruits, or thyromegaly. CHEST EXAMINATION: Trachea is central. Symmetrical expansion. Lung monzon clear to auscultation and percussion. CARDIAC: Normal S1, S2 with no gallops. No murmurs ABDOMEN: Soft. Bowel sounds normal. No organomegaly. No abdominal bruits. Extremities: reveal no edema. No clubbing or cyanosis Neurologically awake, alert, oriented x3 with well-coordinated movements. No focal deficits noted Skin: No rash or skin lesions. Psychiatric: Coperative. Nonsuicidal Musculoskeletal: No joint swelling or deformity. Normal range of motion. Results CBC & Chem 7: 06/13/24 13:14 06/13/24 13:26 Labs: Abnormal Lab Results - Last 24 Hours (Table) 06/13/24 Range/Units 13:26 Chloride 108 H (98-107) mmol/L BUN 25 H (9-20) mg/dL Glucose 111 H (74-99) mg/dL Thrombosis Risk Factor Assmnt - DVT/VTE Prophylaxis DVT/VTE Prophylaxis: Pharmacologic Prophylaxis ordered Assessment and Plan Assessment: New onset atrial fibrillation with rapid ventricular response Dizziness and near syncopal episode secondary to above BPH. Patient takes Proscar and terazosin. Hypertension. Patient is on losartan 100 mg daily. History of tobacco chewing quit 5 years ago Plan: Patient will be continued on telemonitoring. Continue with Cardizem drip and heparin drip. Continue with home medications and monitor blood pressure clos gordon. TSH within normal limits. Cardiology was consulted for evaluation. Time with Patient: Greater than 30
[2024-06-14] MEDS: HEPARIN SODIUM 1,000 UN/ML (10ML VL) IV PRN (00:35)
[2024-06-14 07:35] LABS: African American GFR (CKD) >90 (>60 ml/min/1.73 sqM); Anion Gap 6 mmol/L; Blood Urea Nitrogen 26 mg/dL (9-20); Calcium 9.2 mg/dL (8.4-10.2); Carbon Dioxide 23 mmol/L (22-30); Chloride 110 mmol/L (98-107); Glucose 111 mg/dL (74-99); Non-African American GFR(CKD) >90 (>60 ml/min/1.73 sqM); Potassium 3.8 mmol/L (3.5-5.1); Sodium 139 mmol/L (137-145)
[2024-06-14] MEDS: DOXAZOSIN 4 MG TAB PO SCH (08:15)
[2024-06-14] MEDS: FINASTERIDE 5 MG TAB PO SCH (08:15)
[2024-06-14 08:17] VITALS: RESP 16; TEMP 98.4
--- NOTE | 2024-06-14 10:43 | P.CRDCN ---
History of Present Illness Consult date: 06/14/24 Reason for Consult (text): A-fib with RVR History of present illness: This is a 68-year-old male with past medical history of hypertension, BPH. 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 Patient gives history that yesterday morning he started having rapid heartbeat, in general he was feeling uncomfortable. Patient also had some shortness of breath. He had a very brief dizzy spell. He came to the hospital and found to be in A-fib with RVR. Patient was started on heparin drip and also Cardizem b olus of 10 mg followed by drip. Patient subsequently converted to sinus rhythm last evening and Cardizem drip was paused. Patient does not check his blood pressure at home. He states the last time he was in the PCP office it was 140/80. Recommended the patient obtain a blood pressure cuff for home and check it 2 times a day for a few days. Patient presented with a blood pressure 179/63. This morning 162/71. -EKG: Atrial fibrillation 132 bpm. Repeat sinus rhythm at 55 bpm with asymmetrical T wave inversion in leads I, aVL, V4 through V6. -Chest x-ray: Borderline heart size. No acute process seen. -Laboratory studies: CBC within normal limits. TSH 1.58. Potassium 3.8, BUN 26, creatinine 0.8. Troponin negative x 1. D-dimer 0.33. -Home cardiac medications: Losartan 100 mg daily Review Of Systems: At the time of my exam: CONSTITUTIONAL: Denies fever or chills. HEENT: Denies blurred vision, vision changes, or eye pain. Denies hemoptysis CARDIOVASCULAR: Denies chest pain. Denies orthopnea. Denies PND. Denies palpitations RESPIRATORY: Denies shortness of breath. GASTROINTESTINAL: Denies abdominal pain. Denies nausea or vomiting. HEMATOLOGIC: Denies bleeding disorders. GENITOURINARY: Denies any blood in urine. SKIN: Denies puritis. Denies rash. Physical examination: Gen: This is 68-year-old male in no acute distress VS: reviewed HEENT: Head is atraumatic, normocephalic. Pupils equal, round. Sclerae is anicteric. NECK: Supple. No JVD. LUNGS: Clear to auscultation. No wheezes or rhonchi. No intercostal retractions. HEART: Regular rate and rhythm. No murmur. ABDOMEN: Soft No tenderness. EXTREMITIES: No pedal edema. No calf tenderness. NEUROLOGICAL: Patient is awake, alert and oriented x3. Assessment: New onset paroxysmal atrial fibrillation with RVR, converted to sinus rhythm Bradycardia in sinus rhythm Hypertension BPH Obesity Plan: Resume losartan 100 mg daily No beta-liliana due to baseline bradycardia Discontinue heparin and start patient on Eliquis 5 mg twice daily Discontinue Cardizem drip Obtain 2-D echocardiogram and Doppler study to assess cardiac structure and function Recommend outpatient sleep study If echocardiogram is unremarkable, patient is cleared for discharge home and may follow-up with Dr. Harmon in 1 week. Patient to monitor blood pressure outpatient and bring list to his next appointment with Dr. Harmon Thank you kindly for this consultation. Nurse practitioner note has been reviewed, I agree with documented findings and plan of care. Patient was seen and examined. Past Medical History Past Medical History: Prostate Disorder Additional Past Medical History / Comment(s): enlarged prostate History of Any Multi-Drug Resistant Organisms: None Reported Past Surgical History: Hernia Repair Additional Past Surgical History / Comment(s): colonoscopy Past Anesthesia/Blood Transfusion Reactions: No Reported Reaction Additional Past Anesthesia/Blood Transfusion Reaction / Comment(s): never has had blood transfusion Past Psychological History: No Psychological Hx Reported Smoking Status: Never smoker Past Alcohol Use History: None Reported Past Drug Use History: None Reported - Past Family History Mother Family Medical History: Cancer Father Family Medical History: Deep Vein Thrombosis (DVT) Additional Family Medical History / Comment(s): green field filter Medications and Allergies Home Medications Medication Instructions Recorded Confirmed Type Cholecalciferol [Vitamin D3 (25 50 mcg PO DAILY 02/12/16 06/13/24 History Mcg = 1000 Iu)] Cyanocobalamin [Vitamin B-12] 500 mcg PO DAILY 02/12/16 06/13/24 History Finasteride [Proscar] 5 mg PO DAILY 02/12/16 06/13/24 History Terazosin HCl [Hytrin] 10 mg PO BID 02/12/16 06/13/24 History Losartan Potassium 100 mg PO DAILY 06/13/24 06/13/24 History Allergies Allergy/AdvReac Type Severity Reaction Status Date / Time No Known Allergies Allergy Verified 06/13/24 16:02 Physical Exam Vitals: Vital Signs Temp Pulse Pulse Resp BP BP Pulse Ox 06/14/24 04:13 64 19 150/76 96 06/14/24 00:53 57 L 06/13/24 23:00 97.6 F 52 L 18 146/70 98 06/13/24 22:15 52 L 06/13/24 21:39 97.9 F 53 L 19 145/68 96 06/13/24 18:00 63 20 125/60 95 06/13/24 17:00 64 16 130/64 95 06/13/24 16:00 60 16 133/70 95 06/13/24 15:00 77 16 120/74 95 06/13/24 14:00 67 14 124/67 95 06/13/24 13:25 98 18 123/69 96 06/13/24 12:29 97.7 F 65 18 179/63 96 Intake and Output 06/13/24 06/14/24 06/14/24 22:59 06:59 14:59 Intake Total 615.059 Balance 615.059 Intake: Intake, IV Titration 115.059 Amount Diltiazem 125 mg In 27.375 Dextrose 5% in Water 100 ml @ 5 MG/HR 5 mls/hr IV .Q24H [facility] Rx#:[id number] Heparin Sod,Pork in 0.45% 87.684 NaCl 25,000 unit In 0.45 % NaCl 1 250ml.bag @ 9.8 UNITS/KG/HR 10.002 mls/hr IV .Q24H [facility] Rx#: [id number] Oral 500 Other: Voiding Method Toilet Toilet Urinal Urinal # Voids 1 Weight 102.058 kg 102.1 kg Results 06/13/24 13:14 06/14/24 06:34 Cardiac Enzymes 06/13/24 06/13/24 Range/Units 13:26 13:26 AST 24 (17-59) U/L Troponin I 0.020 (0.000-0.034) ng/mL Coagulation 06/13/24 06/13/24 Range/Units 13:26 21:23 PT 10.3 (10.0-12.5) sec APTT 24.1 31.4 H (22.0-30.0) sec CBC 06/13/24 Range/Units 13:14 WBC 5.28 (4.50-10.00) 10*3/uL RBC 4.70 (4.40-5.60) 10*6/uL Hgb 14.1 (13.0-17.0) g/dL Hct 40.3 (39.6-50.0) % Plt Count 172 (140-440) 10*3/uL Comprehensive Metabolic Panel 06/13/24 06/14/24 Range/Units 13:26 06:34 Sodium 140 139 (137-145) mmol/L Potassium 4.1 3.8 (3.5-5.1) mmol/L Chloride 108 H 110 H (98-107) mmol/L Carbon Dioxide 27 23 (22-30) mmol/L BUN 25 H 26 H (9-20) mg/dL Creatinine 0.99 0.80 (0.66-1.25) mg/dL Glucose 111 H 111 H (74-99) mg/dL Calcium 10.0 9.2 (8.4-10.2) mg/dL AST 24 (17-59) U/L ALT 22 (4-49) U/L Alkaline Phosphatase 72 (38-126) U/L Total Protein 6.3 (6.3-8.2) g/dL Albumin 3.7 (3.5-5.0) g/dL Current Medications Generic Name Dose Route Start Last Admin Trade Name Freq PRN Reason Stop Dose Admin Doxazosin Mesylate 8 mg 06/14/24 09:00 Doxazosin 4 Mg Tab PO BID [facility] Finasteride 5 mg 06/14/24 09:00 Finasteride 5 Mg Tab PO DAILY [facility] Heparin Sodium (Porcine) 0 unit 06/13/24 23:37 06/14/24 00:35 Heparin Sodium 1,000 Un/Ml (10ml Vl) IV 2,550 unit PER PROTOCOL PRN Administration Low PTT Protocol Diltiazem HCl 125 mg/ Dextrose 125 mls @ 5 mls/hr 06/13/24 13:15 06/14/24 01:17 /Water IV 0 mg/hr .Q24H [facility] 0 mls/hr Titration Protocol 5 MG/HR Heparin Sodium/Sodium Chloride 250 mls @ 10.002 mls/hr 06/13/24 15:00 06/13/24 23:59 25,000 unit/ Sodium Chloride IV 11.8 units/kg/hr .Q24H [facility] 12.043 mls/hr Titration Protocol 9.8 UNITS/KG/HR Intake and Output 06/13/24 06/14/24 06/14/24 22:59 06:59 14:59 Intake Total 615.059 Balance 615.059 Intake: Intake, IV Titration 115.059 Amount Diltiazem 125 mg In 27.375 Dextrose 5% in Water 100 ml @ 5 MG/HR 5 mls/hr IV .Q24H [facility] Rx#:[id number] Heparin Sod,Pork in 0.45% 87.684 NaCl 25,000 unit In 0.45 % NaCl 1 250ml.bag @ 9.8 UNITS/KG/HR 10.002 mls/hr IV .Q24H [facility] Rx#: [id number] Oral 500 Other: Voiding Method Toilet Toilet Urinal Urinal # Voids 1 Weight 102.058 kg 102.1 kg 06/13/24 13:14 06/14/24 06:34
--- NOTE | 2024-06-14 11:09 | CA ---
Transthoracic Echo Report Name: Dennis Vazquez Age: 68 Gender: M : 1955 Exam Date: 06/14/2024 09:14 Exam Location: [facility] Ht (in): 72 Wt (lb): 225 Ordering Physician: Lisa Balderas Attending/Referring Phys: Senior Accounting Manager Court Knowles RDCS Procedure CPT: Indications: LVH, afib Cardiac Hx: Technical Quality: Good Contrast 1: Total Dose (mL): Contrast 2: Total Dose (mL): MEASUREMENTS (Male / Female) Normal Values 2D ECHO LV Diastolic Diameter PLAX 6.0 cm 4.2 - 5.9 / 3.9 - 5.3 cm LV Systolic Diameter PLAX 3.8 cm IVS Diastolic Thickness 1.3 cm 0.6 - 1.0 / 0.6 - 0.9 cm LVPW Diastolic Thickness 0.9 cm 0.6 - 1.0 / 0.6 - 0.9 cm LV Relative Wall Thickness 0.4 LVOT Diameter 3.0 cm LV Diastolic Volume MOD BP 264.9 cm??? 67 - 155 / 56 - 104 cm??? LV Systolic Volume MOD BP 104.8 cm??? 22 - 58 / 19 - 49 cm??? LV Ejection Fraction MOD BP 60.4 % >= 55 % LV Cardiac Index MOD BP 4312.0 cm???/min???m??? LV Diastolic Volume MOD 4C 243.8 cm??? LV Systolic Volume MOD 4C 94.5 cm??? LV Ejection Fraction MOD 4C 61.2 % LV Cardiac Index MOD 4C 4022.1 cm???/min???m??? LV Diastolic Length 4C 9.4 cm LV Systolic Length 4C 7.8 cm LV Diastolic Volume MOD 2C 269.5 cm??? LV Systolic Volume MOD 2C 110.1 cm??? LV Ejection Fraction MOD 2C 59.1 % LV Cardiac Index MOD 2C 4293.3 cm???/min???m??? LV Diastolic Length 2C 10.1 cm LV Systolic Length 2C 8.3 cm LA Volume 135.2 cm??? 18 - 58 / 22 - 52 cm??? LA Volume Index 58.7 cm???/m??? 16 - 28 cm???/m??? Ascending Aorta Diameter 3.8 cm DOPPLER AV Peak Velocity 164.9 cm/s AV Peak Gradient 10.9 mmHg AV Mean Velocity 116.6 cm/s AV Mean Gradient 6.0 mmHg AV Velocity Time Integral 36.6 cm AI Peak Velocity 361.5 cm/s AI Peak Gradient 52.3 mmHg AI Pressure Half Time 373.5 ms LVOT Peak Velocity 133.9 cm/s LVOT Peak Gradient 7.2 mmHg LVOT Velocity Time Integral 28.6 cm LVOT Stroke Volume 195.7 cm??? LVOT Stroke Volume Index 87.4 ml/m??? LVOT Cardiac Index 5270.9 cm???/min???m??? AV Area Cont Eq vti 5.4 cm??? AV Area Cont Eq pk 5.6 cm??? MV Area PHT 4.0 cm??? Mitral E Point Velocity 63.9 cm/s Mitral A Point Velocity 42.0 cm/s Mitral E to A Ratio 1.5 MV Deceleration Time 189.4 ms PV Peak Velocity 86.1 cm/s PV Peak Gradient 3.0 mmHg FINDINGS Left Ventricle Left ventricular ejection fraction is estimated at 60 %. Mildly increased diastolic diameter and mildly increased septal wall thickness. No obvious regional wall motion abnormalities. Good systolic function Right Ventricle Moderate right ventricular dilatation. Normal right ventricular global systolic function. Unable to estimate the right ventricular systolic pressure. Right Atrium Severe right atrial dilatation. Left Atrium Severely increased left atrial volume. Mildly increased left atrial area. Mitral Valve Structurally normal mitral valve. No mitral stenosis. Trace to mild mitral regurgitation. No evidence for mitral valve prolapse. Aortic Valve Trileaflet aortic valve. No aortic stenosis. Moderate aortic regurgitation. Eccentric aortic regurgitation jet directed at the mitral valve. Tricuspid Valve Structurally normal tricuspid valve. No tricuspid stenosis. Trace tricuspid regurgitation. Pulmonic Valve Pulmonic valve not well visualized. No pulmonic stenosis. Trace pulmonic regurgitation. Pericardium No pericardial effusion. Aorta Mild aortic dilatation at the level of the sinuses of valsalva (root). Normal ascending aorta. CONCLUSIONS Normal LV size and systolic function. Mildly dilated right ventricle. Moderate aortic regurgitation. Mild mitral and tricuspid regurgitation. Right-sided pressures are not well quantified. No pericardial effusion Previewed by: Dr. Simran Bravo MD (Electronically Signed) Final Date: 14 Jun 2024 11:08
[2024-06-14] MEDS: LOSARTAN 50 MG TAB PO SCH (12:16)
[2024-06-14] MEDS: APIXABAN 5 MG TAB PO SCH (12:16)
[2024-06-14 12:20] VITALS: BP 155/76; PULSE 65
== END 2024-06-14 16:06 | disposition home or self-care (01) ==
LOC: EC 12:27 → 3SCARD 14:51
PROVIDERS: ADMIT Hospitalist; ATTEND Hospitalist
DX: I48.0 Paroxysmal atrial fibrillation (principal); I10 Essential (primary) hypertension; I44.0 Atrioventricular block, first degree; R00.1 Bradycardia, unspecified; N40.0 Benign prostatic hyperplasia without lower urinary tract symptoms; E66.9 Obesity, unspecified; Z68.30 Body mass index [BMI] 30.0-30.9, adult; Z79.899 Other long term (current) drug therapy; Z87.891 Personal history of nicotine dependence
CPT/HCPCS: 96376 ×2; 96366 ×3; 96368; 96365; 99291; 36415; 93005; 93306; 85379; 80053; 80048; 83735; 84443; 84484; 85025; 85610; 85730; 80306; 71046; G0378 ×2; S0138; J1644 ×3

== ENCOUNTER → 2024-06-22 | Outpatient (CLI) | payer MEDICARE ==
[2024-06-22 15:16] LABS: Basophils # (A) 0.04 X 10*3/uL (0.00-0.10); Basophils % (A) 0.8 %; Eosinophils # (A) 0.18 X 10*3/uL (0.04-0.35); Eosinophils % (A) 3.7 %; HCT 42.8 % (39.6-50.0); HGB 14.2 g/dL (13.0-17.0); Lymphocytes # (A) 1.16 X 10*3/uL (0.90-5.00); MCH 29.2 pg (27.0-32.0); MCHC 33.2 g/dL (32.0-37.0); MCV 88.1 FL (80.0-97.0); Mean Platelet Volume 9.8 FL (9.5-12.2); Monocytes # (A) 0.66 X 10*3/uL (0.20-1.00); Monocytes % (A) 13.6 %; NRBC Per 100 WBC 0 X 10*3/uL (0.00-0.01); Neutrophils # (A) 2.77 X 10*3/uL (1.80-7.70); Neutrophils % (A) 57.3 %; Platelet Count 201 X 10*3/uL (140-440); RBC 4.86 X 10*6/uL (4.40-5.60); RDW 13.1 % (11.5-14.5); WBC 4.84 X 10*3/uL (4.50-10.00)
[2024-06-22 15:45] LABS: Blood Urea Nitrogen 24.3 mg/dL (9.0-27.0); Carbon Dioxide 24.5 mmol/L (21.6-31.8); Chloride 108 mmol/L (96-109); Potassium 4.3 mmol/L (3.5-5.5); Sodium 144 mmol/L (135-145)
== END | disposition home or self-care (01) ==
LOC: LABWHC1 10:50
PROVIDERS: ATTEND Student in an Organized Health Care Education/Training Program
DX: Z01.812 Encounter for preprocedural laboratory examination (principal); I10 Essential (primary) hypertension; R94.39 Abnormal result of other cardiovascular function study
CPT/HCPCS: 36415; 80051; 82565; 84520; 85025